=== PATIENT | male | born 1970 | race African-American/Black ===

== ENCOUNTER 2017-01-28 20:41 | Inpatient (IN) | payer SELFPAY ==
[~2017-01-28] VITALS: Ht 182.9 cm; Wt 110.0 kg
[2017-01-28 20:43] VITALS: BP 137/77; PULSE 126; RESP 15; TEMP 102.1; O2SAT 97
--- NOTE | 2017-01-28 22:11 | PD ---
Physical Exam Date Seen by Provider: Jan 28, 2017 Time Seen by Provider: 22:08 Narrative 46 yo male here for dizzyness. has been ongoing for a couple of days. Standing makes it worst.Fell yesterday secondary to this dizzy spells. He feels like he has had a fever. No chest pain or SOB. No loss of consciousness. No sick contacts. Feels lightheaded when he stands. Comes and goes. Worsen today. Vitals sign stable. Patient awaiting bed placement. Data Data Last Documented VS Vital Signs Date Time Temp Pulse Resp B/P Pulse Ox O2 Delivery O2 Flow Rate FiO2 01/28/17 20:43 102.1 126 15 137/77 97 Room Air [facility] Medical Record Reviewed: Yes Supervised Visit with HAILEY: Javier Blanco Jan 28, 2017 22:11
[2017-01-28 22:38] VITALS: BP 135/80; PULSE 116; RESP 20; TEMP 99; O2SAT 96
[2017-01-28] MEDS ORDERED: SODIUM CHLOR 0.9% 1000 ML INJ 1,000 ML IV ONE (23:05)
--- NOTE | 2017-01-28 23:09 | PD ---
HPI Chief Complaint: Dizziness Time Seen by Provider: 22:42 Travel History International Travel<30 days: No Contact w/Intl Traveler<30days: No Traveled to known affect area: No History of Present Illness HPI 46yo M with PMH of HTN presents to the ED with c/o cough for 2-3 days. [place] warm yesterday and has been feeling lightheaded. States lightheaded is worst when he stands up from sitting. Denies any headache, neck pain, chest pain, sob , n/v, abdominal pain, focal weakness or numbness, diarrhea, recent traveling or sick contact. PFSH Past Medical History Cardiovascular Problems: Yes (HTN) Past Surgical History Surgical History: No Previous Surgery Social History Alcohol Use: Yes (10 BEERS EVERY OTHER DAY) Tobacco Use: No Substance Use: No Allergies-Medications (Allergen,Severity, Reaction): Coded Allergies: No Known Allergies (Unverified , 01/28/17) Review of Systems Except as stated in HPI: all other systems reviewed are Neg Physical Exam Narrative GENERAL: 46yo M in mild distress. SKIN: Focused skin assessment warm/dry. HEAD: Atraumatic. Normocephalic. EYES: Pupils equal and round. No scleral icterus. No injection or drainage. ENT: Throat: Clear. NECK: No nuchal rigidity. CARDIOVASCULAR: Regular rate and rhythm. No murmur appreciated. RESPIRATORY: No accessory muscle use. Clear to auscultation. Breath sounds equal bilaterally. GASTROINTESTINAL: Abdomen soft, non-tender, nondistended. MUSCULOSKELETAL: No obvious deformities. No clubbing. No cyanosis. No edema. NEUROLOGICAL: Awake and alert. No obvious cranial nerve deficits. Motor grossly within normal limits. Normal speech. PSYCHIATRIC: Appropriate mood and affect; insight and judgment normal. Data Data Last Documented VS Vital Signs Date Time Temp Pulse Resp B/P Pulse Ox O2 Delivery O2 Flow Rate FiO2 01/29/17 01:31 98.3 115 22 169/79 98 Nasal Cannula 2 Orders Electrocardiogram (01/28/17 23:05) Basic Metabolic Panel (Bmp) (01/28/17 23:05) Complete Blood Count With Diff (01/28/17 23:05) Magnesium (Mg) (01/28/17 23:05) B-Type Natriuretic Peptide (01/28/17 23:05) Ckmb (Isoenzyme) Profile (01/28/17 23:05) Troponin I (01/28/17 23:05) Act Partial Throm Time (Ptt) (01/28/17 23:05) Prothrombin Time / Inr (Pt) (01/28/17 23:05) Urinalysis - C+S If Indicated (01/28/17 23:05) Chest, Single Ap (01/28/17 23:05) Ecg Monitoring (01/28/17 23:05) Sodium Chlor 0.9% 1000 Ml Inj (Ns 1000 M (01/28/17 23:05) Orthostatic Vital Signs (01/28/17 23:05) Blood Culture (01/28/17 23:05) Lactic Acid Sepsis Protocol (01/28/17 23:05) Acetaminophen (Tylenol) (01/28/17 23:15) CKMB (01/28/17 23:00) CKMB% (01/28/17 23:00) Influenzae A/B Antigen (01/29/17 00:17) Vancomycin Inj (Vancomycin Inj) (01/29/17 00:30) Piperacil-Tazo 3.375 Gm Premix (Zosyn 3. (01/29/17 00:30) Sodium Chlor 0.9% 1000 Ml Inj (Ns 1000 M (01/29/17 00:30) Sodium Chlor 0.9% 1000 Ml Inj (Ns 1000 M (01/29/17 00:30) Chest, Single Ap (01/29/17 ) Admit Order (Ed Use Only) (01/29/17 01:42) Vancomycin Consult Pharmacy (Vancomycin (01/29/17 01:45) Cefepime Inj (Maxipime Inj) (01/29/17 09:00) Admit To Inpatient (01/29/17 ) Vital Signs (Adult) Q4H (01/29/17 01:45) Activity Oob With Assistance (01/29/17 01:45) Top Carrier / Telemetry .CONTINUOUS (01/29/17 01:45) Intake + Output JOSEPH.QSHIFT (01/29/17 01:45) Diet Heart Healthy (01/29/17 Breakfast) Sodium Chlor 0.9% 1000 Ml Inj (Ns 1000 M (01/29/17 01:45) Sodium Chloride 0.9% Flush (Ns Flush) (01/29/17 01:45) Sodium Chloride 0.9% Flush (Ns Flush) (01/29/17 09:00) Ondansetron Inj (Zofran Inj) (01/29/17 01:45) Bisacodyl Supp (Dulcolax Supp) (01/29/17 01:45) Comprehensive Metabolic Panel (01/29/17 08:00) Complete Blood Count With Diff (01/29/17 08:00) Creatine Kinase (Cpk) (01/29/17 08:00) Creatine Kinase (Cpk) (01/29/17 14:00) Scd Bilateral/Knee High JOSEPH.BID (01/29/17 01:45) Geo Bilateral/Knee High JOSEPH.QSHIFT (01/29/17 01:45) Acetaminophen (Tylenol) (01/29/17 01:45) Acetamin-Hydrocod 325-5 Mg ([place] 5-325 (01/29/17 01:45) Morphine Inj (Morphine Inj) (01/29/17 01:45) Inpatient Certification (01/29/17 ) Albuterol-Ipratropium Neb (Duoneb Neb) (01/29/17 01:45) Echo 2d Comp W/Dopp(Routine) (01/29/17 ) Lactic Acid (01/29/17 08:00) Labs Laboratory Tests Test 01/28/17 01/28/17 01/29/17 23:00 23:05 01:45 Prothrombin Time 15.9 SEC Prothromb Time International 1.4 RATIO Ratio Activated Partial 29.1 SEC Thromboplast Time White Blood Count 10.5 TH/MM3 Red Blood Count 3.68 MIL/MM3 Hemoglobin 11.8 GM/DL Hematocrit 35.8 % Mean Corpuscular Volume 97.3 FL Mean Corpuscular Hemoglobin 32.1 PG Mean Corpuscular Hemoglobin 33.0 % Concent Red Cell Distribution Width 15.4 % Platelet Count 81 TH/MM3 Mean Platelet Volume 10.1 FL Neutrophils (%) (Auto) 86.2 % Lymphocytes (%) (Auto) 4.4 % Monocytes (%) (Auto) 9.1 % Eosinophils (%) (Auto) 0.1 % Basophils (%) (Auto) 0.2 % Neutrophils # (Auto) 9.1 TH/MM3 Lymphocytes # (Auto) 0.5 TH/MM3 Monocytes # (Auto) 1.0 TH/MM3 Eosinophils # (Auto) 0.0 TH/MM3 Basophils # (Auto) 0.0 TH/MM3 CBC Comment AUTO DIFF Differential Total Cells 100 Counted Neutrophils % (Manual) 60 % Band Neutrophils % 18 % Lymphocytes % 13 % Monocytes % 6 % Neutrophils # (Manual) 8.5 TH/MM3 Metamyelocytes 3 % Differential Comment FINAL DIFF MANUAL Platelet Estimate LOW Platelet Morphology Comment NORMAL Tear Drop Cells 1+ Keratocytes OCC Urine Color DARK-YELLOW Urine Turbidity HAZY Urine pH 5.5 Urine Specific [place] 1.018 Urine Protein 30 mg/dL Urine Glucose (UA) NEG mg/dL Urine Ketones TRACE mg/dL Urine Occult Blood SMALL Urine Nitrite NEG Urine Bilirubin SMALL Urine Urobilinogen LESS THAN 2.0 MG/DL Urine Leukocyte Esterase NEG Urine RBC 1 /hpf Urine WBC 3 /hpf Urine Squamous Epithelial <1 /hpf Cells Urine Bacteria RARE /hpf Urine Hyaline Casts 5 /lpf Urine Mucus FEW /lpf Microscopic Urinalysis Comment CULT NOT INDICATED Sodium Level 135 MEQ/L Potassium Level 3.8 MEQ/L Chloride Level 100 MEQ/L Carbon Dioxide Level 23.0 MEQ/L Anion Gap 12 MEQ/L Blood Urea Nitrogen 15 MG/DL Creatinine 1.53 MG/DL Estimat Glomerular Filtration 60 ML/MIN Rate Random Glucose 107 MG/DL Lactic Acid Level 5.1 mmol/L 4.5 mmol/L Calcium Level 8.6 MG/DL Magnesium Level 1.3 MG/DL Total Creatine Kinase 999 U/L Creatine Kinase MB 4.7 NG/ML Creatine Kinase MB % 0.5 % Troponin I 0.08 NG/ML B-Type Natriuretic Peptide 240 PG/ML [facility] Medical Decision Making Medical Screen Exam Complete: Yes Emergency Medical Condition: Yes Interpretation(s) EKG: Sinus tachycardia at 114bpm. Borderline LAD. Differential Diagnosis Sepsis secondary to pneumonia vs. dehydration vs. influenza Narrative Course 46yo M with SIRS criteria. Pt initially tachycardic and febrile initially. Pt did have some cough. States only history is HTN. Pt given acetaminophen 650mg and sepsis work up initiated. Pt given vancomycin and zosyn. CXR showd no evidence of cardiopulmonary disease. Labs reviewed, no leukocytosis. However, there is bandemia at 18%. Lactic acid is elevated at 5.1. Troponin is mildly elevated at 0.08, likely secondary to sepsis as pt has no chest pain or sob. CPK is elevated at 999. Creatinine 1.53, no prior to compare. BNP mildly elevated at 240. UA showed dark urine. Negative leukocyte or nitrite. After 2 liters of NS IVF, pt started complaining of SOB. Pt reevaluated at bedside and does have some bibasilar crackles. Third liter of NS was not given. Repeat CXR showed mild failure developing in proper clinical setting. Pt has been observed in the ED and has been saturating well. Pt reevaluated at bedside and is feeling better and no longer sob. Discussed case with Dr. Torres and accepted to her service. Critical Care Narrative Aggregate critical care time was 40 minutes. Time to perform other separately billable procedures was not included in the critical care time. My time did not include minutes spent treating any other patients simultaneously or on activities that did not directly contribute to the patient's treatment. The services I provided to this patient were to treat and/or prevent clinically significant deterioration that could result in: cardiovascular collapse or . I provided critical care services requiring my management, as noted below: Chart data review, documentation time, medication orders and management, vital sign assessments/reviewing monitor data, ordering and reviewing lab tests, ordering and interpreting/reviewing x-rays and diagnostic studies, care of the patient and discussion of the patient with the admitting physicians. Diagnosis Primary Impression: Sepsis Qualified Code: A41.9 - Sepsis, due to unspecified organism Admitting Information Admitting Physician Requests: Charmaine Shea DO Jan 28, 2017 23:09
[2017-01-28] MEDS ORDERED: ACETAMINOPHEN 325 MG TAB PO ONE (23:15)
[2017-01-28 23:35] LABS: AUTOMATED NEUTROPHIL # 9.1 TH/MM3 (1.8-7.7); BASOPHIL % 0.2 % (0.0-2.0); EOSINOPHIL % 0.1 % (0.0-4.0); HEMATOCRIT 35.8 % (39.0-51.0); LYMPH % 4.4 % (9.0-44.0); LYMPHOCYTE # 0.5 TH/MM3 (1.0-4.8); MEAN CELL VOLUME 97.3 FL (80.0-100.0); MEAN CORPUSCULAR HEMOGLOBIN 32.1 PG (27.0-34.0); MONO % 9.1 % (0.0-8.0); NEUT % 86.2 % (16.0-70.0); PLATELET COUNT 81 TH/MM3 (150-450); RED BLOOD COUNT 3.68 MIL/MM3 (4.50-5.90); RED CELL DISTRIBUTION WIDTH 15.4 % (11.6-17.2); WHITE BLOOD COUNT 10.5 TH/MM3 (4.0-11.0)
[2017-01-28 23:36] VITALS: BP 127/63; PULSE 115; RESP 24; O2SAT 97
[2017-01-28 23:39] LABS: HEMO FLAGS AUTO DIFF
[2017-01-28 23:43] LABS: APTT (PATIENT) 29.1 SEC (24.3-30.1); INTERNATIONAL NORMALIZED RATIO 1.4 RATIO; PROTHROMBIN TIME - PATIENT 15.9 SEC (9.8-11.6)
--- NOTE | 2017-01-28 23:43 | RADRPT ---
EXAM DATE/TIME: 01/28/2017 23:23 [facility] COMPARISON: No previous studies available for comparison. INDICATIONS : Cough and congestion. MEDICAL HISTORY : None. SURGICAL HISTORY : None. ENCOUNTER: Initial ACUITY: 2 days PAIN SCORE: 6/10 LOCATION: Bilateral chest FINDINGS: A single view of the chest demonstrates the lungs to be symmetrically aerated without evidence of mas s, infiltrate or effusion. The cardiomediastinal contours are unremarkable. Osseous structures are intact. CONCLUSION: No evidence of acute cardiopulmonary disease. Stalin Coffey MD on January 28, 2017 at 23:41 Board Certified Radiologist. This report was verified electronically.
[2017-01-28 23:59] LABS: MAGNESIUM 1.3 MG/DL (1.5-2.5); POTASSIUM 3.8 MEQ/L (3.5-5.1)
[2017-01-29] VITALS (7 sets, daily range): BP systolic 128–176; BP diastolic 78–94; PULSE 103–115; RESP 20–22; TEMP 97.7–99.4; O2SAT 96–99
[2017-01-29 00:18] LABS: CKMB 4.7 NG/ML (0.5-3.6)
[2017-01-29] MEDS ORDERED: SODIUM CHLOR 0.9% 1000 ML INJ 1,000 ML IV ONE ×2 (00:30)
[2017-01-29] MEDS ORDERED: VANCOMYCIN INJ 1,650 MG in SODIUM CHLORID 0.9% 500 ML INJ 500 ML IV ONE (00:30)
[2017-01-29] MEDS ORDERED: PIPERACIL-TAZO 3.375 GM PREMIX 50 ML IV ONE (00:30)
[2017-01-29 00:55] LABS: BANDS 18 % (0-6); METAMYELOCYTES 3 % (0-1); NEUTROPHIL # MANUAL DIFF 8.5 TH/MM3 (1.8-7.7); POLYS (SEG NEUTROPHILS) 60 % (16-70); WBC DIFF SAMPLE 100
[2017-01-29 00:56] LABS: TEARDROP RBCS 1+ (NORMAL)
[2017-01-29 00:57] LABS: KERATOCYTES OCC (NORMAL); PLATELET ESTIMATE SMEAR LOW (NORMAL); PLATELET MORPHOLOGY NORMAL (NORMAL); SCAN/DIFF FINAL DIFF MANUAL
[2017-01-29 01:29] LABS: LACTIC ACID GHOST NOT REPORTABLE
[2017-01-29 01:41] LABS: BACTERIA, URINE RARE /hpf; BLOOD, URINE SMALL (NEG); GLUCOSE,URINE NEG (NEG); HYALINE CAST, URINE 5 /lpf (RARE); KETONE, URINE TRACE mg/dL (NEG); MUCUS URINE FEW /lpf (OCC); NITRITE,URINE NEG (NEG); PH, URINE 5.5 (5.0-8.5); SQUAMOUS EPITHELIAL CELL URINE <1 /hpf (0-5); URINE COLOR DARK-YELLOW (YELLW/STRAW)
[2017-01-29 01:43] LABS: COMMENT (UR) CULT NOT INDICATED; CULTURE IF INDICATED CULT NOT INDICATED
[2017-01-29] MEDS: SODIUM CHLOR 0.9% 1000 ML INJ 1,000 ML IV SCH ×2 (01:45→21:00)
[2017-01-29] MEDS ORDERED: ACETAMINOPHEN/HYDROcodone 325 MG/5 MG TAB PO PRN (01:45)
[2017-01-29] MEDS ORDERED: MORPHINE SULFATE 4 MG/ML INJ IV PRN (01:45)
[2017-01-29] MEDS ORDERED: Vancomycin Consult Pharmacy 1 EA OTHER SCH (01:45)
[2017-01-29] MEDS ORDERED: RESP: ALBUTEROL 2.5 MG/IPRATROPIUM 0.5 MG NEB (PRN) NEB (01:45)
[2017-01-29] MEDS ORDERED: ACETAMINOPHEN 325 MG TAB PO PRN (01:45)
[2017-01-29] MEDS ORDERED: BISACODYL 10 MG SUPP RECTAL PRN (01:45)
[2017-01-29] MEDS ORDERED: ONDANSETRON HCL 4 MG/2 ML VIAL IVP PRN (01:45)
[2017-01-29] MEDS ORDERED: SODIUM CHLORIDE 0.9% FLUSH 10 ML FLUSH IV FLUSH PRN (01:45)
[2017-01-29] MEDS ORDERED: RESP: ALBUTEROL 2.5 MG/IPRATROPIUM 0.5 MG NEB (SCH) ONE (02:09)
[2017-01-29] MEDS ORDERED: FUROSEMIDE 20 MG/2 ML VIAL IV PUSH ONE (02:15)
--- NOTE | 2017-01-29 02:35 | RADRPT ---
EXAM DATE/TIME: 01/29/2017 02:02 [facility] COMPARISON: CHEST SINGLE AP, January 28, 2017, 23:23. INDICATIONS : Short of breath. MEDICAL HISTORY : None. SURGICAL HISTORY : None. ENCOUNTER: Subsequent ACUITY: 1 day PAIN SCORE: 7/10 LOCATION: Bilateral chest FINDINGS: Mild haziness seen of both bases and perihilar regions, suggest the possibility of mild developing pu lmonary edema. Heart size upper limits of normal. No large effusion seen. No pneumothorax. CONCLUSION: Suspected mild failure developing in the proper clinical setting. No confluent infiltrate seen. Stalin Coffey MD on January 29, 2017 at 2:32 Board Certified Radiologist. This report was verified electronically.
--- NOTE | 2017-01-29 02:45 | HHI.HP ---
[facility] No Primary Care Physician Admission Diagnosis Sepsis, rhabdomyolysis Diagnoses: (1) Sepsis Diagnosis: Principal (2) Bandemia Diagnosis: Principal (3) Elevated troponin Diagnosis: Principal (4) Flash pulmonary edema Diagnosis: Principal (5) Rhabdomyolysis Diagnosis: Principal (6) Renal insufficiency Diagnosis: Principal (7) Thrombocytopenia Diagnosis: Principal Travel History International Travel<30 Days: No Contact w/Intl Traveler <30 Da: No Traveled to Known Affected Are: No History of Present Illness This is a 46-year-old male with a PMH of HTN and presented to the ER with complaints of generalized weakness, cough and fever x2 days. Denies sick contacts. Reports episodes of dizziness/lightheadedness today, no LOC. On arrival, BP 137/77, HR 126, O2 sat 97% on RA, Temp 102.1. WBC 10.5. Platelets 81. Bandemia 18. Creatinine 1.53, no previous labs for comparison. GFR 60. Lactic Acid 5.1. CPK 999. Trop 0.08. BNP 240. U/a hazy but neg for UTI. CXR negative for UTI. S/p 2L IVF and Vanc/Zosyn in ER. After IVF, pt w/ acute respiratory distress, +crackles. Denies h/o CHF or CAD. Review of Systems Except as stated in HPI: all other systems reviewed are Neg ROS: 14 point review of systems otherwise negative. Past Family Social History Past Medical History PMH: HTN Past Surgical History PAST SURGICAL HISTORY: None Allergies: Coded Allergies: No Known Allergies (Unverified , 01/28/17) Family History PAST FAMILY HISTORY: Reviewed. No h/o DM or CAD Social History PAST SOCIAL HISTORY: 10 beers every other day. Negative for tobacco or drugs. Physical Exam Vital Signs Vital Signs Date Time Temp Pulse Resp B/P Pulse Ox O2 Delivery O2 Flow Rate FiO2 01/29/17 01:31 98.3 115 22 169/79 98 Nasal Cannula 2 01/28/17 23:36 115 24 127/63 97 Room Air 01/28/17 23:00 Room Air 01/28/17 22:38 99.0 116 20 135/80 96 Room Air 01/28/17 20:43 102.1 126 15 137/77 97 Room Air Physical Exam PE: GENERAL: Middle-aged black male in no acute distress. HEENT: PERRLA, EOMI. No scleral icterus or conjunctival pallor. No lid lag or facial droop. CARDIOVASCULAR: Regular rate and rhythm. No obvious murmurs to auscultation. No chest tenderness to palpation. RESPIRATORY: No obvious rhonchi or wheezing, +crackles at bases, otherwise clear to auscultation. Breath sounds equal bilaterally. GASTROINTESTINAL: Abdomen soft, non-tender, nondistended. BS normal. MUSCULOSKELETAL: Extremities without clubbing, cyanosis, or edema. No obvious deformities. NEUROLOGICAL: Awake, alert and oriented x4. No focal neurologic deficits. Moving both upper and lower extremities spontaneously. Laboratory Laboratory Tests Test 01/28/17 01/28/17 23:00 23:05 Prothrombin Time 15.9 Prothromb Time International 1.4 Ratio Activated Partial 29.1 Thromboplast Time White Blood Count 10.5 Red Blood Count 3.68 Hemoglobin 11.8 Hematocrit 35.8 Mean Corpuscular Volume 97.3 Mean Corpuscular Hemoglobin 32.1 Mean Corpuscular Hemoglobin 33.0 Concent Red Cell Distribution Width 15.4 Platelet Count 81 Mean Platelet Volume 10.1 Neutrophils (%) (Auto) 86.2 Lymphocytes (%) (Auto) 4.4 Monocytes (%) (Auto) 9.1 Eosinophils (%) (Auto) 0.1 Basophils (%) (Auto) 0.2 Neutrophils # (Auto) 9.1 Lymphocytes # (Auto) 0.5 Monocytes # (Auto) 1.0 Eosinophils # (Auto) 0.0 Basophils # (Auto) 0.0 CBC Comment AUTO DIFF Differential Total Cells 100 Counted Neutrophils % (Manual) 60 Band Neutrophils % 18 Lymphocytes % 13 Monocytes % 6 Neutrophils # (Manual) 8.5 Metamyelocytes 3 Differential Comment FINAL DIFF MANUAL Platelet Estimate LOW Platelet Morphology Comment NORMAL Tear Drop Cells 1+ Keratocytes OCC Urine Color DARK-YELLOW Urine Turbidity HAZY Urine pH 5.5 Urine Specific [place] 1.018 Urine Protein 30 Urine Glucose (UA) NEG Urine Ketones TRACE Urine Occult Blood SMALL Urine Nitrite NEG Urine Bilirubin SMALL Urine Urobilinogen LESS THAN 2.0 Urine Leukocyte Esterase NEG Urine RBC 1 Urine WBC 3 Urine Squamous Epithelial <1 Cells Urine Bacteria RARE Urine Hyaline Casts 5 Urine Mucus FEW Microscopic Urinalysis Comment CULT NOT INDICATED Sodium Level 135 Potassium Level 3.8 Chloride Level 100 Carbon Dioxide Level 23.0 Anion Gap 12 Blood Urea Nitrogen 15 Creatinine 1.53 Estimat Glomerular Filtration 60 Rate Random Glucose 107 Lactic Acid Level 5.1 Calcium Level 8.6 Magnesium Level 1.3 Total Creatine Kinase 999 Creatine Kinase MB 4.7 Creatine Kinase MB % 0.5 Troponin I 0.08 B-Type Natriuretic Peptide 240 Date/Time Procedure Status Source Growth 01/29/17 00:30 Influenza Types A,B Antigen ([facility]ACK) - Final Complete Nasal Aspirate NEGATIVE FOR FLU A AND B ANTIGEN.... 01/28/17 23:00 Aerobic Blood Culture Received Blood Peripheral Pending 01/28/17 23:00 Anaerobic Blood Culture Received Blood Peripheral Pending Result Diagram: 01/28/17 2300 01/28/170 Assessment and Plan Problem List: (1) Sepsis ICD Code: A41.9 Status: Acute (2) Bandemia ICD Code: D72.825 Status: Acute (3) Elevated troponin ICD Code: R74.8 Status: Acute (4) Rhabdomyolysis ICD Code: M62.82 Status: Acute (5) Renal insufficiency ICD Code: N28.9 Status: Acute (6) Thrombocytopenia ICD Code: D69.6 Status: Acute (7) Flash pulmonary edema ICD Code: J81.0 Status: Acute Assessment and Plan A/P: 1. Sepsis: Temp 102.1, HR 126, WBC 10.5 however Bandemia 18, Lactate 5.1. Source-unclear. CXR w/ no acute findings, images reviewed by me, U/a negative for UTI. S/p Vanc/Zosyn in ER in addition to 2L IVF, caution w/ IVF in light of flash pulmonary edema. Repeat Lactate. 2. Flash Pulmonary Edema: s/p 2L IVF for Sepsis w/ acute respiratory distress , +crackles on exam, give Lasix 10mg x1 now, repeat CXR, DuoNeb prn. +diuresis following Lasix. I/O. BNP 240. No h/o CHF, will check Echo for further evaluation. 3. Elevated Trop: Trop 0.08, likely secondary to fluid overload/sepsis. Check serial cardiac enzymes, check Echo, Morphine prn. Hold ASA in light of thrombocytopenia. 4. Rhabdomyolysis: CPK 999. IVF-caution w/ fluid overload, check serial CPK. 5. Renal Insufficiency: Creatinine 1.53, no previous labs for comparison, baseline unknown. U/a negative. IVF-caution w/ overload. Repeat labs in am. 6. Thrombocytopenia: Platelets 81, no previous labs for comparison, no active bleeding. Will monitor, repeat labs in am. 7. DVT Prophylaxis: SCD/Teds. 8. Social work for d/c planning as needed. 9. Case discussed w/ ER physician at length. Physician Certification 2 Midnight Certification Type: Admission for Inpatient Services Order for Inpatient Services The services are ordered in accordance with Medicare regulations or non- Medicare payer requirements, as applicable. In the case of services not specified as inpatient-only, they are appropriately provided as inpatient services in accordance with the 2-midnight benchmark. Estimated LOS (days): 2 days is the estimated time the patient will need to remain in the hospital, assuming treatment plan goals are met and no additional complications. Post-Hospital Plan: Not yet determined Problem Qualifiers (1) Sepsis: Qualified Code: A41.9 - Sepsis, due to unspecified organism Maribel Torres MD Jan 29, 2017 02:45
[2017-01-29] MEDS ORDERED: LORazepam 1 MG TAB PO PRN (08:30)
[2017-01-29] MEDS ORDERED: LORazepam 2 MG/ML VIAL IV PUSH PRN ×4 (08:30)
[2017-01-29] MEDS ORDERED: FLUMAZENIL 0.5 MG/5 ML VIAL IV PUSH PRN (08:30)
[2017-01-29] MEDS ORDERED: LORazepam 2 MG TAB PO PRN (08:30)
[2017-01-29 08:48] LABS: AUTOMATED NEUTROPHIL # 14.1 TH/MM3 (1.8-7.7); BASOPHIL % 0.3 % (0.0-2.0); HEMATOCRIT 33.2 % (39.0-51.0); LYMPH % 3.5 % (9.0-44.0); LYMPHOCYTE # 0.6 TH/MM3 (1.0-4.8); MEAN CELL VOLUME 97.4 FL (80.0-100.0); MEAN CORPUSCULAR HEMOGLOBIN 32.7 PG (27.0-34.0); MEAN CORPUSCULAR HGB CONC 33.6 % (32.0-36.0); MONO % 10.1 % (0.0-8.0); NEUT % 86.1 % (16.0-70.0); PLATELET COUNT 75 TH/MM3 (150-450); RED BLOOD COUNT 3.41 MIL/MM3 (4.50-5.90); RED CELL DISTRIBUTION WIDTH 15.9 % (11.6-17.2); WHITE BLOOD COUNT 16.3 TH/MM3 (4.0-11.0)
[2017-01-29 08:51] LABS: HEMO FLAGS AUTO DIFF
--- NOTE | 2017-01-29 08:52 | HHI.PR ---
Subjective Remarks f/u for possible infection, tachycardia patient stated yesterday he was so fatigue so slept all day and didnt drink any fluids. He stated prior from that he was drinking a lot. Denied any SOB prior to admission and stated we caused his SOB with fluids. Only symptoms patient had was watery diarrhea and feeling fatigue. Objective Vitals Vital Signs Date Time Temp Pulse Resp B/P Pulse Ox O2 Delivery O2 Flow Rate FiO2 01/29/17 08:19 98.3 111 20 128/88 98 Room Air 01/29/17 05:57 106 20 148/81 98 Room Air 01/29/17 04:02 108 20 155/78 96 Room Air 01/29/17 01:31 98.3 115 22 169/79 98 Nasal Cannula 2 01/28/17 23:36 115 24 127/63 97 Room Air 01/28/17 23:00 Room Air 01/28/17 22:38 99.0 116 20 135/80 96 Room Air 01/28/17 20:43 102.1 126 15 137/77 97 Room Air Result Diagram: 01/28/17 2300 01/28/17 2300 Objective Remarks GENERAL: in NAD CARDIOVASCULAR: Regular rate and rhythm without murmurs, gallops, or rubs. RESPIRATORY: Breath sounds equal bilaterally. No accessory muscle use. GASTROINTESTINAL: Abdomen soft, non-tender, nondistended. MUSCULOSKELETAL: No cyanosis, or edema. BACK: Nontender without obvious deformity. No CVA tenderness. Medications and IVs Current Medications Sodium Chloride (NS 1000 ml Inj) 1,000 ml @ 1,000 mls/hr Q1H ONCE IV Last administered on 01/28/17 23:32; Start 01/28/17 at 23:05; Stop 01/29/17 at 00:04 ; Status DC Acetaminophen 650 mg 650 mg ONCE ONCE PO Last administered on 01/28/17 23:32 ; Start 01/28/17 at 23:15; Stop 01/28/17 at 23:16; Status DC Vancomycin HCl 1650 mg/Sodium Chloride 516.5 ml @ 250 mls/hr ONCE ONCE IV Last administered on 01/29/17 01:48; Start 01/29/17 at 00:30; Stop 01/29/17 at 02:34; Status DC Piperacillin Sod/ Tazobactam Sod 50 ml @ 100 mls/hr ONCE ONCE IV Last administered on 01/29/17 00:45; Start 01/29/17 at 00:30; Stop 01/29/17 at 00:59 ; Status DC Sodium Chloride 1,000 ml @ 999 mls/hr BOLUS ONCE IV Last administered on 01/29 00:44; Start 01/29/17 at 00:30; Stop 01/29/17 at 01:30; Status DC Sodium Chloride 1,000 ml @ 999 mls/hr BOLUS ONCE IV Last administered on 01/29 00:45; Start 01/29/17 at 00:30; Stop 01/29/17 at 01:30; Status DC Pharmacy Profile Note 0 ml @ 0 mls/hr UNSCH OTHER ; Start 01/29/17 at 01:45 Cefepime HCl 1000 mg/Sodium Chloride 100 ml @ 200 mls/hr Q12H IV ; Start at 09:00 Sodium Chloride (NS 1000 ml Inj) 1,000 ml @ 50 mls/hr Q20H IV ; Start 01/29/17 at 01:45 Sodium Chloride (NS Flush) 2 ml UNSCH PRN IV FLUSH FLUSH AFTER USING IV ACCESS ; Start 01/29/17 at 01:45 Sodium Chloride (NS Flush) 2 ml BID IV FLUSH ; Start 01/29/17 at 09:00 Ondansetron HCl (Zofran Inj) 4 mg Q6H PRN IVP NAUSEA OR VOMITING; Start at 01:45 Bisacodyl (Dulcolax Supp) 10 mg DAILY PRN RECTAL CONSTIPATION; Start 01/29/17 at 01:45 Acetaminophen (Tylenol) 650 mg Q6H PRN PO FEVER/PAIN SCALE 1 TO 2; Start at 01:45 Acetaminophen/ Hydrocodone Bitart ([place] 5-325 Mg) 1 tab Q4H PRN PO PAIN SCALE 3 TO 5; Start 01/29/17 at 01:45 Morphine Sulfate (Morphine Inj) 2 mg Q3H PRN IV Pain 6-10; Start 01/29/17 at 01 :45 Albuterol/ Ipratropium (Duoneb Neb) 1 ampule Q4HR NEB PRN NEB SOB/WHEEZING; Start 01/29/17 at 01:45 Furosemide (Lasix Inj) 10 mg ONCE ONCE IV PUSH Last administered on 01/29/17 02:27; Start 01/29/17 at 02:15; Stop 01/29/17 at 02:34; Status DC Albuterol/ Ipratropium (Duoneb Neb) 1 ampule STK-MED ONCE .ROUTE Last administered on 01/29/17 02:26; Start 01/29/17 at 02:09; Stop 01/29/17 at 02:10 ; Status DC Flumazenil (Romazicon Inj) 0.2 mg Q1M PRN IV PUSH SEE LABEL COMMENTS; Start at 08:30 Lorazepam (Ativan) 1 mg Q4H PRN PO CIWA 8 - 10; Start 01/29/17 at 08:30 Lorazepam (Ativan Inj) 1 mg Q4H PRN IV PUSH CIWA 8 - 10; Start 01/29/17 at 08: 30 Lorazepam (Ativan) 2 mg Q2H PRN PO CIWA 11-14; Start 01/29/17 at 08:30 Lorazepam (Ativan Inj) 2 mg Q2H PRN IV PUSH CIWA 11-14; Start 01/29/17 at 08:30 Lorazepam (Ativan Inj) 2 mg Q1H PRN IV PUSH CIWA 15-20; Start 01/29/17 at 08:30 Lorazepam (Ativan Inj) 2 mg Q15M PRN IV PUSH CIWA > 20; Start 01/29/17 at 08:30 A/P Problem List: (1) Sepsis ICD Code: A41.9 Status: Acute (2) Bandemia ICD Code: D72.825 Status: Acute (3) Elevated troponin ICD Code: R74.8 Status: Acute (4) Rhabdomyolysis ICD Code: M62.82 Status: Acute (5) Renal insufficiency ICD Code: N28.9 Status: Acute (6) Thrombocytopenia ICD Code: D69.6 Status: Acute (7) Flash pulmonary edema ICD Code: J81.0 Status: Acute Assessment and Plan SIRS -Temp 102.1, HR 126, WBC 10.5 however Bandemia 18, Lactate 5.1. CXR w/ no acute findings and U/a negative for UTI. -+ diarrhea and no abdominal pain. seems more like viral etiology. will get stool samples. -clinically patient looks good d/c S/p Vanc and cefepime since no infectious source and see how patient does off antibiotics. -pending blood cultures. Flash Pulmonary Edema - s/p 2L IVF for Sepsis w/ acute respiratory distress, +crackles on exam, give Lasix 10mg x1 now, repeat CXR, DuoNeb prn. +diuresis following Lasix. I/O. BNP 240. -No h/o CHF. pending ECHO. Tachycardia -maybe due to alcohol withdrawal or due to SIRS/dehydration. -continue to monitor on telemetry. Elevated Trop - Trop 0.08, likely secondary to fluid overload/SIRS. - Check serial cardiac enzymes, check Echo, Morphine prn. Hold ASA in light of thrombocytopenia. Rhabdomyolysis - CPK 999. - IVF-caution w/ fluid overload, check serial CPK. -monitor closely. Renal Insufficiency Creatinine 1.53, no previous labs for comparison, baseline unknown. - U/a negative. IVF-caution w/ overload. -continue to monitor creatinine. -avoid nephrotoxins. Thrombocytopenia -most likely due to alcoholism. - Platelets 81, no previous labs for comparison, no active bleeding. -continue to monitor. Alcohol abuse -will start CIWA protocol. DVT Prophylaxis: SCD/Teds. Discharge Planning Need to monitor closely to ensure improvement. Problem Qualifiers (1) Sepsis: Qualified Code: A41.9 - Sepsis, due to unspecified organism Miley Ochoa MD Jan 29, 2017 08:52
[2017-01-29] MEDS: SODIUM CHLORIDE 0.9% FLUSH 10 ML FLUSH IV FLUSH SCH ×2 (08:54→21:00)
[2017-01-29] MEDS ORDERED: CEFEPIME INJ 1,000 MG in SODIUM CHLORIDE 0.9% INJ 100 ML IV SCH (09:00)
[2017-01-29 11:52] LABS: BANDS 40 % (0-6); BASOPHILS 1 % (0-2); NEUTROPHIL # MANUAL DIFF 15.2 TH/MM3 (1.8-7.7); PLATELET ESTIMATE SMEAR LOW (NORMAL); PLATELET MORPHOLOGY NORMAL (NORMAL); POLYS (SEG NEUTROPHILS) 53 % (16-70); SCAN/DIFF FINAL DIFF MANUAL; WBC DIFF SAMPLE 100
[2017-01-29 14:28] LABS: ALKALINE PHOSPHATASE 127 U/L (45-117); ALT (GPT) 89 U/L (12-78); ANION GAP 14 MEQ/L (5-15); AST (GOT) 258 U/L (15-37); BLOOD UREA NITROGEN 16 MG/DL (7-18); CHLORIDE 104 MEQ/L (98-107); CREATINE KINASE 1030 U/L (39-308); GLOMERULAR FILTRATION RATE 72 ML/MIN (>89); POTASSIUM 3.7 MEQ/L (3.5-5.1); SODIUM (NA) 136 MEQ/L (136-145)
[2017-01-29 14:45] LABS: CKMB 11.4 NG/ML (0.5-3.6)
[2017-01-29 15:24] LABS: C. DIFF EPI 027 PRESUMPTIVE NEGATIVE (NEGATIVE); C. DIFF TOXIN PCR NEGATIVE (NEGATIVE)
[2017-01-29 17:42] LABS: CKMB 10.1 NG/ML (0.5-3.6)
--- NOTE | 2017-01-29 19:10 | EKG ---
Date Performed: 01/28/2017 Time Performed: 23:23:12 PTAGE: 46 years EKG: SINUS TACHYCARDIA ABNORMAL RHYTHM ECG NO PREVIOUS TRACING DOCTOR: Anand Mobley Interpretating Date/Time 01/29/2017 19:08:17
[2017-01-30] VITALS (9 sets, daily range): BP systolic 126–176; BP diastolic 72–104; PULSE 82–108; RESP 18–20; TEMP 96.3–98.7; O2SAT 96–99
[2017-01-30 05:40] LABS: HEMATOCRIT 32.4 % (39.0-51.0); MEAN CELL VOLUME 96.7 FL (80.0-100.0); MEAN CORPUSCULAR HEMOGLOBIN 31.6 PG (27.0-34.0); MEAN CORPUSCULAR HGB CONC 32.7 % (32.0-36.0); PLATELET COUNT 72 TH/MM3 (150-450); RED BLOOD COUNT 3.36 MIL/MM3 (4.50-5.90); RED CELL DISTRIBUTION WIDTH 15.7 % (11.6-17.2); WHITE BLOOD COUNT 17.9 TH/MM3 (4.0-11.0)
[2017-01-30 05:46] LABS: REVIEW FLAG FINAL
[2017-01-30 05:59] LABS: BICARBONATE 27.5 MEQ/L (21.0-32.0); POTASSIUM 3.4 MEQ/L (3.5-5.1)
[2017-01-30] MEDS ORDERED: cloNIDine HCL 0.1 MG TAB PO PRN (06:00)
[2017-01-30] MEDS: SODIUM CHLOR 0.9% 1000 ML INJ 1,000 ML IV SCH (08:19)
[2017-01-30] MEDS: SODIUM CHLORIDE 0.9% FLUSH 10 ML FLUSH IV FLUSH SCH ×2 (08:19→21:59)
--- NOTE | 2017-01-30 09:44 | HHI.PR ---
Subjective Remarks Patient denies nausea, vomiting , abdominal pain denies fevers/chills states had diarrhea all day yesterday, he noticed he had some mucus but no blood denies cough denies cp denies skin lessions wbc trending up bp noted to be elevated. Objective Vitals Vital Signs Date Time Temp Pulse Resp B/P Pulse Ox O2 Delivery O2 Flow Rate FiO2 01/30/17 08:00 98.6 98 18 147/91 96 01/30/17 04:00 98.7 98 20 176/102 99 01/30/17 02:19 163/93 01/30/17 00:00 98.7 106 20 167/104 99 01/29/17 20:00 103 01/29/17 20:00 99.4 108 20 176/91 99 01/29/17 12:00 97.7 107 22 157/94 98 01/29/17 11:54 112 20 144/80 96 I/O 01/29/17 01/29/17 01/29/17 01/30/17 01/30/17 01/30/17 07:00 15:00 23:00 07:00 15:00 23:00 Intake Total 120 ml 480 ml 240 ml Output Total 200 ml Balance -80 ml 480 ml 240 ml Intake Oral 120 ml 480 ml 240 ml IV Total 0 ml Output Urine Total 200 ml # Voids 2 3 # Bowel Movements 1 2 Result Diagram: 01/30/17 0438 01/30/17 0438 Imaging Last Impressions Chest X-Ray 01/29/17 0000 Signed Impressions: Service Date/Time: Sunday, January 29, 2017 02:02 - CONCLUSION: Suspected mild failure developing in the proper clinical setting. No confluent infiltrate seen. Stalin Coffey MD Objective Remarks GENERAL: in NAD CARDIOVASCULAR: Regular rate and rhythm without murmurs, gallops, or rubs. RESPIRATORY: Breath sounds equal bilaterally. No accessory muscle use. GASTROINTESTINAL: Abdomen soft, non-tender, nondistended. MUSCULOSKELETAL: No cyanosis, or edema. BACK: Nontender without obvious deformity. No CVA tenderness. Procedures none Medications and IVs Current Medications Medications (Trade) Dose Ordered Sig/Elizabeth Route Start Time Stop Time Status Last Admin (NS 1000 ml Inj) 1,000 ml @ 50 mls/hr Q20H IV 01/29/17 01:45 (NS Flush) 2 ml UNSCH PRN IV FLUSH 01/29/17 01:45 (NS Flush) 2 ml BID IV FLUSH 01/29/17 09:00 01/30/17 08:19 (Zofran Inj) 4 mg Q6H PRN IVP 01/29/17 01:45 (Dulcolax Supp) 10 mg DAILY PRN RECTAL 01/29/17 01:45 (Tylenol) 650 mg Q6H PRN PO 01/29/17 01:45 ([place] 5-325 Mg) 1 tab Q4H PRN PO 01/29/17 01:45 (Morphine Inj) 2 mg Q3H PRN IV 01/29/17 01:45 (Romazicon Inj) 0.2 mg Q1M PRN IV PUSH 01/29/17 08:30 (Ativan) 1 mg Q4H PRN PO 01/29/17 08:30 01/29/17 21:00 (Ativan Inj) 1 mg Q4H PRN IV PUSH 01/29/17 08:30 (Ativan) 2 mg Q2H PRN PO 01/29/17 08:30 (Ativan Inj) 2 mg Q2H PRN IV PUSH 01/29/17 08:30 (Ativan Inj) 2 mg Q1H PRN IV PUSH 01/29/17 08:30 (Ativan Inj) 2 mg Q15M PRN IV PUSH 01/29/17 08:30 Clonidine 0.1 mg 0.1 mg Q6H PRN PO 01/30/17 06:00 01/30/17 05:58 Vancomycin HCl 1000 mg/Sodium Chloride 250 ml @ 250 mls/hr Q12H IV 01/30/17 09:45 UNV (Zosyn 4.5 Gm Premix) 100 ml @ 200 mls/hr Q8H IV 01/30/17 09:45 UNV A/P Problem List: (1) Severe sepsis ICD Code: A41.9 Status: Acute Plan: Present on admission, patient with temperature of 102.1, heart rate 126, white blood cell 10.5, however bandemia of 18 and a lactate of 5.1 and acute kidney injury. Chest x-ray no acute disease, UA negative for UTI. Sepsis likely secondary to acute gastroenteritis. Patient with diarrhea but no abdominal pain. Patient initially treated with IV vancomycin and IV cefepime, was discontinued by Dr. Ochoa after suspected bilateral etiology. 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 Follow-up stool studies sent. I will order stool ova and parasite and stool WBC. I will start the patient on IV ciprofloxacin. (2) Bandemia ICD Code: D72.825 Status: Acute Plan: As above. Continue to monitor CBC with differential. (3) Elevated troponin ICD Code: R74.8 Status: Acute Plan: Troponin slightly elevated at 0.08, repeat enzymes 0.052. Likely secondary to demand ischemia and acute pulmonary edema with some component of congestive heart failure and sepsis. EKG reviewed by me on admission showed sinus tachycardia without ST changes suggestive of active ischemia. (4) Rhabdomyolysis ICD Code: M62.82 Status: Acute Plan: CPK 9 mL admission. Continue gentle IV fluids with caution with fluid overload. Continue to monitor CPK. (5) Thrombocytopenia ICD Code: D69.6 Status: Acute Plan: , Cytopenia likely reactive to alcohol abuse and acute infectious process. Continue to monitor platelets. No signs of active bleeding. (6) Flash pulmonary edema ICD Code: J81.0 Status: Acute Plan: Due to fluid overload. Suspect there is some CHF component since patient has also bilateral lower extremity edema. Check 2-D echocardiogram. (7) MIRIAN (acute kidney injury) ICD Code: N17.9 Status: Resolved Plan: Likely from prerenal azotemia from dehydration due to diarrhea. Resolved after fluid administration. (8) Transaminitis ICD Code: R74.0 Status: Acute Plan: AST elevated at 258, AST 89. Likely due to alcohol abuse. Check hepatitis panel and continue to monitor liver function tests. Check liver ultrasound. (9) Congestive heart failure ICD Code: I50.9 Status: Acute Plan: Something with pulmonary edema and fluid overload. Follow-up echocardiogram. Heart in normal tests of normal. I will consult cardiology. For now continue gentle IV fluids since the patient needs the IV fluids secondary to sepsis and diarrhea. (10) Diarrhea ICD Code: R19.7 Status: Acute Plan: Likely the cause of sepsis, follow-up stools studies as mentioned above. Check HIV. C diff negative Consult infectious disease. Will start Lactobacillus acidophilus. (11) Leukocytosis ICD Code: D72.829 Status: Acute Plan: Likely due to sepsis secondary to gastritis. Start empiric IV antibiotic therapy with IV ciprofloxacin. Continue to monitor CBC with differential. (12) Hypokalemia ICD Code: E87.6 Status: Acute Plan: Epicardial anemia likely secondary to GI loss secondary to diarrhea. Replace orally and continue to monitor. Replace as needed. (13) Elevated lactic acid level ICD Code: R79.89 Status: Acute Plan: Due to sepsis and dehydration secondary to diarrhea. Continue gentle IV fluids with caution secondary to concurrent congestive heart failure and recent pulmonary edema. Continue to monitor lactic acid. (14) Anemia ICD Code: D64.9 Status: Acute Plan: Normocytic anemia. Check iron studies. Possibly secondary to liver disease. (15) Uncontrolled hypertension ICD Code: I10 Status: Acute Plan: Patient's blood pressure persistently elevated into the 170s systolic. I will start the patient on lisinopril. Continue clonidine when necessary. Assessment and Plan DVT prophylaxis: SCDs, add Lovenox SQ Problem Qualifiers (1) Rhabdomyolysis: Qualified Code: M62.82 - Non-traumatic rhabdomyolysis (2) Diarrhea: Qualified Code: R19.7 - Diarrhea, unspecified type (3) Leukocytosis: Qualified Code: D72.829 - Leukocytosis, unspecified type (4) Anemia: Qualified Code: D64.9 - Anemia, unspecified type Steve aLcy MD Jan 30, 2017 09:44
[2017-01-30] MEDS ORDERED: VANCOMYCIN INJ 1,000 MG in SODIUM CHLOR 0.9% 250 ML INJ 250 ML IV SCH (09:45)
[2017-01-30] MEDS ORDERED: POTASSIUM CHLORIDE 20 MEQ CONTROLLED RELEASE TAB PO ONE (09:45)
[2017-01-30] MEDS ORDERED: PIPERACIL-TAZO 4.5 GM PREMIX 100 ML IV SCH (09:45)
[2017-01-30] MEDS: LISINOPRIL 10 MG TAB PO SCH (11:02)
[2017-01-30] MEDS: CIPROFLOXACIN 400 MG PREMIX 200 ML IV SCH ×2 (11:02→23:37)
[2017-01-30 12:50] LABS: FERRITIN 285 NG/ML (26-388); TRANSFERRIN IRON PROFILE 140 MG/DL (200-360)
--- NOTE | 2017-01-30 13:13 | MB ---
cc: GABBI JACOBSON MD DATE OF CONSULTATION: 01/30/2017 DATE OF : 1970 REASON FOR CONSULTATION Shortness of breath, heart failure. HISTORY OF PRESENT ILLNESS 46 year-old man with past medical history significant for hypertension, obesity and alcohol abuse who presented to the emergency department with complaint of generalized weakness, cough and fever for two days, associated with dizziness and light headedness. He was admitted to the hospital and treated with antibiotics for an obscure source of infection. He has been given antibiotics as per as well as IV fluids. He had apparent episode of shortness of breath in the setting of getting too much IV hydration during this admission. Thus, cardiology has been consulted for heart failure evaluation. He denies chest pain , palpitations, shortness of breath, PND. He reports bilateral leg edema which started since admission in the hospital. REVIEW OF SYSTEMS: Negative except for what is mentioned in the HPI. PAST MEDICAL HISTORY: Hypertension. PAST SURGICAL HISTORY: None. ALLERGIES: NO KNOWN DRUG ALLERGIES. FAMILY HISTORY: Noncontributory. SOCIAL HISTORY: He drinks ten beers every day. He denies illicit drug use or tobacco abuse. 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 PHYSICAL EXAMINATION: Vital signs: Temperature 98.6 trending down from 102, RR 18, HR 98, blood pressure 147/91, O2 sats 96% room air. Generally awake, alert, oriented x3 in no acute distress. Neck: No JVD, no carotid bruits. Heart: Regular rate and rhythm. No murmurs, rubs or gallops. Lungs: Clear to auscultation bilaterally. No wheezes or rhonchi. Abdomen: Obese. Positive bowel sounds, soft, nontender, nondistended. Extremities: There is +1 edema. No cyanosis. Pulses throughout. DATA CBC: WBC trending up from 10 to 17, hemoglobin 10, hematocrit 32, platelet count 72, INR 1.4. Chemistry: 136, potassium 3.4, BUN 21, creatinine 1.02, troponin less than 0.05 x2. Urinalysis: Positive for protein. Blood cultures, urine cultures have not grown anything so far. Chest x-ray: Some mild pulmonary congestion. EKG: sinus tachycardia with nonspecific ST changes. ASSESSMENT/PLAN 46-year-old male admitted with fever, cough, being treated for an infection, consulted for mild heart failure exacerbation in the setting of aggressive IV hydration. No previous cardiac history. He remains afebrile and hemodynamically stable. Echocardiogram reveals preserved LV systolic function, no wall motion abnormalities, increase right sided pressure. RECOMMENDATIONS 1. PO diuresis. 2. Low salt diet for weight daily, 3. Strict input and output. 4. Weight daily 5. Encourage ambulation, exercise, weight loss and decrease alcohol intake. Thank you for the opportunity to participate in the care of this patient. Sign off Gabbi Jacobson MD SUPERCHARGE REPAIR SUPERVISOR/SARAHI /12:22 PM /12:55 PM MTDOsman
--- NOTE | 2017-01-30 13:56 | RADRPT ---
EXAM DATE/TIME: 01/30/2017 12:55 [facility] COMPARISON: No previous studies available for comparison. INDICATIONS : Increased lab values. MEDICAL HISTORY : Hypertension. Neurologic problems. SURGICAL HISTORY : None. ENCOUNTER: Initial ACUITY: 1 day PAIN SCORE: 10 LOCATION: Bilateral upper quadrant MEASUREMENTS: LIVER: 20.5 cm length COMMON DUCT: 5 mm RIGHT KIDNEY: 12.5 x 6.0 x 6.9 cm SPLEEN: 13.4 cm length FINDINGS: LIVER: Diffuse nodularity of the liver capsule just and cirrhosis. No focal mass identified. Portal venous f low is hepatopedal. Prominent venous structure is seen extending anteriorly into the periumbilical re gion suggesting a recanalized periumbilical vein. COMMON DUCT: No intraluminal mass or stone visualized. GALLBLADDER: Diffuse mild gallbladder wall thickening. Gallbladder is incompletely distended. No calculi identifie d. PANCREAS: The visualized portions are within normal limits. RIGHT KIDNEY: No hydronephrosis, stone or mass. SPLEEN: Enlarged measuring 13.4 cm in craniocaudal dimension. CONCLUSION: 1. Diffuse nodularity of the liver capsule suggesting cirrhosis. 2. Recanalized periumbilical vein portal venous hypertension. Portal venous flow is hepatopedal. 3. Mild splenomegaly. 4. Mild nonspecific diffuse gallbladder wall thickening. Apollo Wright MD on January 30, 2017 at 13:51 Board Certified Radiologist. This report was verified electronically.
--- NOTE | 2017-01-30 19:00 | EC ---
Study Study Date:01/30/2017 STUDY CONCLUSIONS SUMMARY - Left ventricle: The cavity size was normal. Wall thickness was increased in a pattern of moderate LVH. Systolic function was normal. The estimated ejection fraction was 60%. Wall motion was normal; there were no regional wall motion abnormalities. - Mitral valve: Mild regurgitation. - Left atrium: The atrium was mildly dilated. - Tricuspid valve: Mild regurgitation. - Pulmonary arteries: Systolic pressure was moderately increased. PA peak pressure: 58mm Hg (S). If LV function is below 40, please consider prescribing an ACEI or ARB or document rationale for non-use. PROCEDURE DATA STUDY STATUS: Elective. Procedure: Transthoracic echocardiography. Image quality was good. Scanning was performed from the parasternal, apical, and subcostal acoustic windows. Study completion: The patient tolerated the procedure well. Transthoracic echocardiography. M-mode, complete 2D, complete spectral Doppler, and color Doppler. Patient status: Inpatient. CARDIAC ANATOMY LEFT VENTRICLE: The cavity size was normal. Wall thickness was increased in a pattern of moderate LVH. Systolic function was normal. The estimated ejection fraction was 60%. Wall motion was normal; there were no regional wall motion abnormalities. AORTIC VALVE: Trileaflet; normal thickness leaflets. Doppler: Transvalvular velocity was within the normal range. There was no stenosis. No regurgitation. AORTA: Aortic root: The aortic root was normal in size. MITRAL VALVE: Structurally normal valve. Doppler: Transvalvular velocity was within the normal range. There was no evidence for stenosis. Mild regurgitation. LEFT ATRIUM: The atrium was mildly dilated. RIGHT VENTRICLE: The cavity size was normal. Wall thickness was normal. PULMONIC VALVE: Doppler: Transvalvular velocity was within the normal range. There was no evidence for stenosis. No regurgitation. TRICUSPID VALVE: Structurally normal valve. Doppler: Transvalvular velocity was within the normal range. Mild regurgitation. PULMONARY ARTERY: The main pulmonary artery was normal-sized. Systolic pressure was moderately increased. RIGHT ATRIUM: The atrium was normal in size. PERICARDIUM: There was no pericardial effusion. SYSTEMIC VEINS: Inferior vena cava: The vessel was normal in size. BASIC MEASUREMENTS ADULT Normal Left ventricle LV internal dimension, ED, chordal level, *52.3 mm 43-52 PLAX LV internal dimension, ES, chordal level, 36.9 mm 23-38 PLAX Fractional shortening, chordal level, PLAX *29 % >29 LV posterior wall thickness, ED 11.5 mm IVS/LVPW ratio, ED *1.4 <1.3 Ventricular septum Septal thickness, ED 16.1 mm Aortic valve Leaflet separation 23 mm 15-26 Right ventricle RV internal dimension, ED, PLAX 26.6 mm 19-38 BASIC MEASUREMENTS ADULT Normal Aortic valve Leaflet separation 23 mm 15-26 Aorta Root diameter, ED 30 mm 20-37 Left atrium Anterior-posterior dimension, ES *43 mm 19-40 LA/aortic root ratio 1.43 DOPPLER MEASUREMENTS ADULT Normal Main pulmonary artery Pressure, S *58 mm Hg =30 Tricuspid valve Regurgitant peak velocity 347 cm/s Peak RV-RA gradient, S 48 mm Hg Maximal regurgitant velocity 347 cm/s Systemic veins Estimated CVP 10 mm Hg Right ventricle RV pressure, S *58 mm Hg <30 LEGEND: Mean values are shown as u=mean value. Asterisk (*) wiggins values outside specified normal range. Prepared and signed by Anand Mobley [id number]
[2017-01-31] VITALS: BP 118/68; PULSE 84; RESP 20; TEMP 97.8; O2SAT 98
[2017-01-31 04:00] VITALS: BP 120/70; PULSE 80; RESP 20; TEMP 98; O2SAT 96
[2017-01-31 05:12] LABS: AUTOMATED NEUTROPHIL # 9.8 TH/MM3 (1.8-7.7); BASOPHIL # 0.1 TH/MM3 (0-0.2); BASOPHIL % 0.9 % (0.0-2.0); EOSINOPHIL # 0.3 TH/MM3 (0-0.4); HEMATOCRIT 32.5 % (39.0-51.0); LYMPH % 18.4 % (9.0-44.0); LYMPHOCYTE # 2.6 TH/MM3 (1.0-4.8); MEAN CELL VOLUME 96.9 FL (80.0-100.0); MEAN CORPUSCULAR HEMOGLOBIN 31.5 PG (27.0-34.0); MEAN CORPUSCULAR HGB CONC 32.6 % (32.0-36.0); NEUT % 69.7 % (16.0-70.0); PLATELET COUNT 88 TH/MM3 (150-450); RED BLOOD COUNT 3.35 MIL/MM3 (4.50-5.90); RED CELL DISTRIBUTION WIDTH 15.3 % (11.6-17.2); WHITE BLOOD COUNT 14.1 TH/MM3 (4.0-11.0)
[2017-01-31 05:17] LABS: HEMO FLAGS AUTO DIFF
[2017-01-31 05:34] LABS: ALT (GPT) 62 U/L (12-78); ANION GAP 8 MEQ/L (5-15); AST (GOT) 143 U/L (15-37); BICARBONATE 24.1 MEQ/L (21.0-32.0); BLOOD UREA NITROGEN 17 MG/DL (7-18); CHLORIDE 104 MEQ/L (98-107); GLOMERULAR FILTRATION RATE 109 ML/MIN (>89); MAGNESIUM 1.7 MG/DL (1.5-2.5); POTASSIUM 3.8 MEQ/L (3.5-5.1); SODIUM (NA) 136 MEQ/L (136-145)
[2017-01-31 05:36] LABS: ALKALINE PHOSPHATASE 77 U/L (45-117); CREATINE KINASE 187 U/L (39-308); TOTAL BILIRUBIN ADULT 3.8 MG/DL (0.2-1.0)
[2017-01-31 07:32] LABS: BANDS 26 % (0-6); BASOPHILS 1 % (0-2); EOSINOPHILS 2 % (0-4); MYELOCYTES 2 % (0-0); NEUTROPHIL # MANUAL DIFF 11.6 TH/MM3 (1.8-7.7); POLYS (SEG NEUTROPHILS) 54 % (16-70); WBC DIFF SAMPLE 100
[2017-01-31 07:33] LABS: ACANTHOCYTES OCC (NORMAL)
[2017-01-31 07:34] LABS: TEARDROP RBCS 1+ (NORMAL)
[2017-01-31 07:35] LABS: OVALOCYTES 1+ (NORMAL); PLATELET ESTIMATE SMEAR LOW (NORMAL); PLATELET MORPHOLOGY NORMAL (NORMAL); SCAN/DIFF FINAL DIFF MANUAL
[2017-01-31 08:00] VITALS: BP 151/93; PULSE 86; RESP 18; TEMP 86; O2SAT 97
--- NOTE | 2017-01-31 08:06 | HHI.PR ---
Subjective Remarks overall doing fine with no complaints. afebrile. no abdominal pain, nausea, vomiting. Objective Vitals Vital Signs Date Time Temp Pulse Resp B/P Pulse Ox O2 Delivery O2 Flow Rate FiO2 01/31/17 04:00 98.0 80 20 120/70 96 01/31/17 00:00 97.8 84 20 118/68 98 01/30/17 22:45 97 01/30/17 21:00 108 01/30/17 20:00 98.5 82 20 126/72 97 01/30/17 16:00 96.3 96 20 158/89 97 01/30/17 12:00 98.0 92 19 154/96 98 I/O 01/30/17 01/30/17 01/30/17 01/31/17 01/31/17 01/31/17 07:00 15:00 23:00 07:00 15:00 23:00 Intake Total 240 ml 432 ml 480 ml 220 ml Output Total 550 ml 550 ml Balance 240 ml 432 ml -70 ml -330 ml Intake Oral 240 ml 240 ml 480 ml 220 ml IV Total 0 ml 192 ml Output Urine Total 550 ml 550 ml # Voids 3 4 # Bowel Movements 0 0 0 Result Diagram: 01/31/17 0425 01/31/17 0425 Imaging Last Impressions Liver Ultrasound 01/30/17 0000 Signed Impressions: Service Date/Time: Monday, January 30, 2017 12:55 - CONCLUSION: 1. Diffuse nodularity of the liver capsule suggesting cirrhosis. 2. Recanalized periumbilical vein portal venous hypertension. Portal venous flow is hepatopedal. 3. Mild splenomegaly. 4. Mild nonspecific diffuse gallbladder wall thickening. Apollo Wright MD Chest X-Ray 01/29/17 0000 Signed Impressions: Service Date/Time: Sunday, January 29, 2017 02:02 - CONCLUSION: Suspected mild failure developing in the proper clinical setting. No confluent infiltrate seen. Stalin Coffey MD Objective Remarks GENERAL: This is a well-nourished, well-developed patient, in no apparent distress. CARDIOVASCULAR: Regular rate and regular rhythm without murmurs, gallops, or rubs. RESPIRATORY: Clear to auscultation. Breath sounds equal bilaterally. No wheezes , rales, or rhonchi. GASTROINTESTINAL: Abdomen soft, non-tender, nondistended. Normal, active bowel sounds MUSCULOSKELETAL: Extremities without clubbing, cyanosis, or edema. NEURO: Alert & Oriented x4 to person, place, time, situation. Moves all ext x4 Procedures none Medications and IVs Current Medications Sodium Chloride (NS 1000 ml Inj) 1,000 ml @ 1,000 mls/hr Q1H ONCE IV Last administered on 01/28/17 23:32; Start 01/28/17 at 23:05; Stop 01/29/17 at 00:04 ; Status DC Acetaminophen 650 mg 650 mg ONCE ONCE PO Last administered on 01/28/17 23:32 ; Start 01/28/17 at 23:15; Stop 01/28/17 at 23:16; Status DC Vancomycin HCl 1650 mg/Sodium Chloride 516.5 ml @ 250 mls/hr ONCE ONCE IV Last administered on 01/29/17 01:48; Start 01/29/17 at 00:30; Stop 01/29/17 at 02:34; Status DC Piperacillin Sod/ Tazobactam Sod 50 ml @ 100 mls/hr ONCE ONCE IV Last administered on 01/29/17 00:45; Start 01/29/17 at 00:30; Stop 01/29/17 at 00:59 ; Status DC Sodium Chloride 1,000 ml @ 999 mls/hr BOLUS ONCE IV Last administered on 01/29 00:44; Start 01/29/17 at 00:30; Stop 01/29/17 at 01:30; Status DC Sodium Chloride 1,000 ml @ 999 mls/hr BOLUS ONCE IV Last administered on 01/29 00:45; Start 01/29/17 at 00:30; Stop 01/29/17 at 01:30; Status DC Pharmacy Profile Note 0 ml @ 0 mls/hr UNSCH OTHER ; Start 01/29/17 at 01:45; Stop 01/29/17 at 08:53; Status DC Cefepime HCl 1000 mg/Sodium Chloride 100 ml @ 200 mls/hr Q12H IV ; Start at 09:00; Stop 01/29/17 at 09:00; Status DC Sodium Chloride (NS 1000 ml Inj) 1,000 ml @ 50 mls/hr Q20H IV ; Start 01/29/17 at 01:45 Sodium Chloride (NS Flush) 2 ml UNSCH PRN IV FLUSH FLUSH AFTER USING IV ACCESS ; Start 01/29/17 at 01:45 Sodium Chloride (NS Flush) 2 ml BID IV FLUSH Last administered on 01/30/17 21: 59; Start 01/29/17 at 09:00 Ondansetron HCl (Zofran Inj) 4 mg Q6H PRN IVP NAUSEA OR VOMITING; Start at 01:45 Bisacodyl (Dulcolax Supp) 10 mg DAILY PRN RECTAL CONSTIPATION; Start 01/29/17 at 01:45 Acetaminophen (Tylenol) 650 mg Q6H PRN PO FEVER/PAIN SCALE 1 TO 2; Start at 01:45 Acetaminophen/ Hydrocodone Bitart ([place] 5-325 Mg) 1 tab Q4H PRN PO PAIN SCALE 3 TO 5; Start 01/29/17 at 01:45 Morphine Sulfate (Morphine Inj) 2 mg Q3H PRN IV Pain 6-10; Start 01/29/17 at 01 :45 Albuterol/ Ipratropium (Duoneb Neb) 1 ampule Q4HR NEB PRN NEB SOB/WHEEZING; Start 01/29/17 at 01:45 Furosemide (Lasix Inj) 10 mg ONCE ONCE IV PUSH Last administered on 01/29/17 02:27; Start 01/29/17 at 02:15; Stop 01/29/17 at 02:34; Status DC Albuterol/ Ipratropium (Duoneb Neb) 1 ampule STK-MED ONCE .ROUTE Last administered on 01/29/17 02:26; Start 01/29/17 at 02:09; Stop 01/29/17 at 02:10 ; Status DC Flumazenil (Romazicon Inj) 0.2 mg Q1M PRN IV PUSH SEE LABEL COMMENTS; Start at 08:30 Lorazepam (Ativan) 1 mg Q4H PRN PO CIWA 8 - 10 Last administered on 01/29/17 21:00; Start 01/29/17 at 08:30 Lorazepam (Ativan Inj) 1 mg Q4H PRN IV PUSH CIWA 8 - 10; Start 01/29/17 at 08: 30 Lorazepam (Ativan) 2 mg Q2H PRN PO CIWA 11-14; Start 01/29/17 at 08:30 Lorazepam (Ativan Inj) 2 mg Q2H PRN IV PUSH CIWA 11-14; Start 01/29/17 at 08:30 Lorazepam (Ativan Inj) 2 mg Q1H PRN IV PUSH CIWA 15-20; Start 01/29/17 at 08:30 Lorazepam (Ativan Inj) 2 mg Q15M PRN IV PUSH CIWA > 20; Start 01/29/17 at 08:30 Clonidine 0.1 mg 0.1 mg Q6H PRN PO SBP>180, DBP>95 Last administered on 05:58; Start 01/30/17 at 06:00 Vancomycin HCl 1000 mg/Sodium Chloride 250 ml @ 250 mls/hr Q12H IV ; Start at 09:45; Stop 01/30/17 at 09:55; Status DC Piperacillin Sod/ Tazobactam Sod (Zosyn 4.5 Gm Premix) 100 ml @ 200 mls/hr Q8H IV ; Start 01/30/17 at 09:45; Stop 01/30/17 at 09:55; Status DC Potassium Chloride 20 meq 20 meq ONCE ONCE PO Last administered on 01/30/17 11:02; Start 01/30/17 at 09:45; Stop 01/30/17 at 09:56; Status DC Ciprofloxacin/ Dextrose (Cipro 400 Mg Premix) 200 ml @ 200 mls/hr Q12H IV Last administered on 01/30/17 23:37; Start 01/30/17 at 11:00 Lisinopril (Prinivil) 10 mg DAILY PO Last administered on 01/30/17 11:02; Start 01/30/17 at 10:45 A/P Assessment and Plan A/P - severe sepsis Present on admission, patient with temperature of 102.1, heart rate 126, white blood cell 10.5, however bandemia of 18 and a lactate of 5.1 and acute kidney injury. Chest x-ray no acute disease, UA negative for UTI. Sepsis likely secondary to acute gastroenteritis. Patient with diarrhea but no abdominal pain. started the patient on IV ciprofloxacin. CBC in am. (2) Bandemia ICD Code: D72.825 Status: Acute Plan: As above. Continue to monitor CBC with differential. (3) Elevated troponin ICD Code: R74.8 Status: Acute Plan: Troponin slightly elevated at 0.08, repeat enzymes 0.052. Likely secondary to demand ischemia and acute pulmonary edema with some component of congestive heart failure and sepsis. EKG with no acute St-T changes. (4) Rhabdomyolysis-resolved ICD Code: M62.82 Status: Acute Plan: CPK 9 mL admission. Continue gentle IV fluids with caution with fluid overload. (5) Thrombocytopenia ICD Code: D69.6 Status: Acute Plan: , Cytopenia likely reactive to alcohol abuse and acute infectious process. Continue to monitor platelets. No signs of active bleeding. advised to stop drinking. (6) Flash pulmonary edema ICD Code: J81.0 Status: Acute Plan: Due to fluid overload. Suspect there is some CHF component since patient has also bilateral lower extremity edema. (7) MIRIAN (acute kidney injury) ICD Code: N17.9 Status: Resolved Plan: Likely from prerenal azotemia from dehydration due to diarrhea. Resolved after fluid administration. (8) Transaminitis ICD Code: R74.0 Status: Acute Plan: AST elevated at 258, AST 89. Likely due to alcohol abuse. hepatitis panel pending. liver US with cirrhosis. (9) Congestive heart failure- chronic diastolic ICD Code: I50.9 Status: Acute pulmonary edema and fluid overload. echo with EF 60% cardiology consult appreciated. (10) Diarrhea ICD Code: R19.7 Status: Acute Plan: Likely the cause of sepsis,stool culture negative. C diff negative Consulted infectious disease. Will start Lactobacillus acidophilus. (11) Leukocytosis ICD Code: D72.829 Status: Acute Plan: Likely due to sepsis secondary to gastritis. Start empiric IV antibiotic therapy with IV ciprofloxacin. Continue to monitor CBC with differential. (12) Hypokalemia ICD Code: E87.6 Status: Acute Plan: Epicardial anemia likely secondary to GI loss secondary to diarrhea. Replace as needed. (13) Elevated lactic acid level ICD Code: R79.89 Status: Acute Plan: Due to sepsis and dehydration secondary to diarrhea. Continue gentle IV fluids with caution secondary to concurrent congestive heart failure and recent pulmonary edema. Continue to monitor lactic acid. (14) Anemia ICD Code: D64.9 Status: Acute Plan: Normocytic anemia. Possibly secondary to liver disease. (15) Uncontrolled hypertension- better. ICD Code: I10 Status: Acute Plan: Patient's blood pressure persistently elevated into the 170s systolic. started on lisinopril. continue to monitor and adjust the regimen as needed. Puneet Lees MD January 31, 2017 08:05 Puneet Lees MD January 31, 2017 08:05
[2017-01-31] MEDS: SODIUM CHLORIDE 0.9% FLUSH 10 ML FLUSH IV FLUSH SCH ×2 (08:32→20:13)
[2017-01-31] MEDS: LISINOPRIL 10 MG TAB PO SCH (08:32)
[2017-01-31] MEDS: CIPROFLOXACIN 400 MG PREMIX 200 ML IV SCH (11:28)
[2017-01-31 12:00] VITALS: BP 149/90; PULSE 95; RESP 18; TEMP 96.5; O2SAT 99
[2017-01-31 16:00] VITALS: BP 135/83; PULSE 94; RESP 18; TEMP 96.3; O2SAT 100
--- NOTE | 2017-01-31 16:47 | PD.ID.CON ---
History of Present Illness Service ID Consult Requested By Dr Vidal Reason for Consult diarrheal disease and sepsis Primary Care Physician No Primary Care Physician Diagnoses: History of Present Illness This is a 46-year-old male with a PMH of HTN and presented to the ER with generalized weakness, cough and fever x2 days. He has fever of 102.1 leukocytosis bandemia of 18% and lactic acidosis with Lactic Acid 5.1. 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 Social History No Tobacco. heavy daily ETOH. No Illicit Drugs. Physical Exam Vital Signs Vital Signs Date Time Temp Pulse Resp B/P Pulse Ox O2 Delivery O2 Flow Rate FiO2 01/31/17 12:00 96.5 95 18 149/90 99 01/31/17 08:00 86.0 86 18 151/93 97 01/31/17 04:00 98.0 80 20 120/70 96 01/31/17 00:00 97.8 84 20 118/68 98 01/30/17 22:45 97 01/30/17 21:00 108 01/30/17 20:00 98.5 82 20 126/72 97 Physical Exam CONSTITUTIONAL/GENERAL: This is a well nourished patient, in no apparent distress. TUBES/LINES/DRAINS: SKIN: No jaundice, rashes, or lesions. Skin temperature appropriate. Not diaphoretic. HEAD: Atraumatic. Normocephalic. EYES: Pupils equal and round and reactive. Extraocular motions intact. ? mild scleral icterus. No injection or drainage. Fundi not examined. ENT: Hearing grossly normal. Nose without bleeding or purulent drainage. oral mucosae without visible erythema, exudates, masses, or lesions. dentition in good condition NECK: Trachea midline. Supple, nontender.. CARDIOVASCULAR: Regular rate and rhythm without murmurs, gallops, or rubs. No JVD. Peripheral pulses symmetric. RESPIRATORY/CHEST: Symmetric, unlabored respirations. Clear to auscultation. Breath sounds equal bilaterally. No wheezes, rales, or rhonchi. GASTROINTESTINAL: Abdomen soft, non-tender, nondistended. No hepato-splenomegaly , or palpable masses. No guarding. Bowel sounds present. GENITOURINARY: Without palpable bladder distension. MUSCULOSKELETAL: Extremities without clubbing, cyanosis, or edema. No joint tenderness or effusion noted. No calf tenderness. No mottling or clubbing. LYMPHATICS: No palpable cervical or supraclavicular adenopathy. NEUROLOGICAL: Awake and alert. Motor and sensory grossly within normal limits. Follows commands. Cognitively sharp. Moves all extremities. PSYCHIATRIC: No obvious anxiety/depression. no apparent hallucinations or other psychotic thought process. Laboratory Laboratory Tests Test 01/31/17 04:25 White Blood Count 14.1 Red Blood Count 3.35 Hemoglobin 10.6 Hematocrit 32.5 Mean Corpuscular Volume 96.9 Mean Corpuscular Hemoglobin 31.5 Mean Corpuscular Hemoglobin 32.6 Concent Red Cell Distribution Width 15.3 Platelet Count 88 Mean Platelet Volume 10.3 Neutrophils (%) (Auto) 69.7 Lymphocytes (%) (Auto) 18.4 Monocytes (%) (Auto) 9.0 Eosinophils (%) (Auto) 2.0 Basophils (%) (Auto) 0.9 Neutrophils # (Auto) 9.8 Lymphocytes # (Auto) 2.6 Monocytes # (Auto) 1.3 Eosinophils # (Auto) 0.3 Basophils # (Auto) 0.1 CBC Comment AUTO DIFF Differential Total Cells 100 Counted Neutrophils % (Manual) 54 Band Neutrophils % 26 Lymphocytes % 5 Monocytes % 10 Eosinophils % 2 Basophils % 1 Neutrophils # (Manual) 11.6 Myelocytes 2 Differential Comment FINAL DIFF MANUAL Platelet Estimate LOW Platelet Morphology Comment NORMAL Tear Drop Cells 1+ Ovalocytes 1+ Acanthocytes OCC Sodium Level 136 Potassium Level 3.8 Chloride Level 104 Carbon Dioxide Level 24.1 Anion Gap 8 Blood Urea Nitrogen 17 Creatinine 0.91 Estimat Glomerular Filtration 109 Rate Random Glucose 74 Calcium Level 8.1 Phosphorus Level 2.4 Magnesium Level 1.7 Total Bilirubin 3.8 Aspartate Amino Transf 143 (AST/SGOT) Alanine Aminotransferase 62 (ALT/SGPT) Alkaline Phosphatase 77 Total Creatine Kinase 187 Total Protein 6.9 Albumin 2.1 Date/Time Procedure Status Source Growth 01/29/17 12:41 - Final Complete Stool Stool NO ENTERIC PATHOGENS DETECTED BY PCR... 01/29/17 00:30 Influenza Types A,B Antigen ([facility]) - Final Complete Nasal Aspirate NEGATIVE FOR FLU A AND B ANTIGEN.... 01/28/17 23:00 Aerobic Blood Culture - Preliminary Resulted Blood Peripheral NO GROWTH IN 3 DAYS 01/28/17 23:00 Anaerobic Blood Culture - Preliminary Resulted Blood Peripheral NO GROWTH IN 3 DAYS Result Diagram: 01/31/17 0425 01/31/17 0425 Imaging Last Impressions Liver Ultrasound 01/30/17 0000 Signed Impressions: Service Date/Time: Monday, January 30, 2017 12:55 - CONCLUSION: 1. Diffuse nodularity of the liver capsule suggesting cirrhosis. 2. Recanalized periumbilical vein portal venous hypertension. Portal venous flow is hepatopedal. 3. Mild splenomegaly. 4. Mild nonspecific diffuse gallbladder wall thickening. Apollo Wright MD Chest X-Ray 01/29/17 0000 Signed Impressions: Service Date/Time: Sunday, January 29, 2017 02:02 - CONCLUSION: Suspected mild failure developing in the proper clinical setting. No confluent infiltrate seen. Satlin Coffey MD Assessment and Plan Assessment and Plan Acute febrile illness on presentation with complete resolution of presentimng smx - montoya negative - probaly viral illness Abx associated diarrnea, resolved; C.diff negative - stool pathogens negative Leukocytosis with marked bandemia ? reacitve Rhabdomyolisis ETOH induced liver disease HIV, hepatitis negative - d/c cipro - observe off abx - fu WBC and bandemia Fabiola Zimmer MD January 31, 2017 16:47
[2017-01-31 20:00] VITALS: BP 162/96; PULSE 95; RESP 20; TEMP 97; O2SAT 94
[2017-02-01] VITALS: BP 146/88; PULSE 93; RESP 20; TEMP 98.5; O2SAT 97
[2017-02-01 04:00] VITALS: BP 136/82; PULSE 89; RESP 20; TEMP 98; O2SAT 98
[2017-02-01 06:11] LABS: AUTOMATED NEUTROPHIL # 6.6 TH/MM3 (1.8-7.7); BASOPHIL # 0.1 TH/MM3 (0-0.2); BASOPHIL % 0.6 % (0.0-2.0); EOSINOPHIL # 0.3 TH/MM3 (0-0.4); EOSINOPHIL % 2.7 % (0.0-4.0); HEMATOCRIT 32.6 % (39.0-51.0); LYMPH % 17.4 % (9.0-44.0); LYMPHOCYTE # 1.8 TH/MM3 (1.0-4.8); MEAN CELL VOLUME 96.6 FL (80.0-100.0); MEAN CORPUSCULAR HEMOGLOBIN 33.4 PG (27.0-34.0); MEAN CORPUSCULAR HGB CONC 34.5 % (32.0-36.0); MONO % 15.1 % (0.0-8.0); NEUT % 64.2 % (16.0-70.0); PLATELET COUNT 101 TH/MM3 (150-450); RED BLOOD COUNT 3.38 MIL/MM3 (4.50-5.90); RED CELL DISTRIBUTION WIDTH 15.4 % (11.6-17.2); WHITE BLOOD COUNT 10.2 TH/MM3 (4.0-11.0)
[2017-02-01 06:55] LABS: HEMO FLAGS AUTO DIFF
[2017-02-01 06:59] LABS: BANDS 16 % (0-6); EOSINOPHILS 1 % (0-4); METAMYELOCYTES 1 % (0-1); MYELOCYTES 1 % (0-0); NEUTROPHIL # MANUAL DIFF 7.1 TH/MM3 (1.8-7.7); PLATELET ESTIMATE SMEAR LOW (NORMAL); PLATELET MORPHOLOGY NORMAL (NORMAL); POLYS (SEG NEUTROPHILS) 52 % (16-70); WBC DIFF SAMPLE 100
[2017-02-01 07:00] LABS: SCAN/DIFF FINAL DIFF MANUAL
[2017-02-01 08:00] VITALS: BP 161/95; PULSE 91; RESP 18; TEMP 98.6; O2SAT 94
--- NOTE | 2017-02-01 08:00 | HHI.PR ---
Subjective Remarks resting comfortably with no distress. no fever. no complaints. Objective Vitals Vital Signs Date Time Temp Pulse Resp B/P Pulse Ox O2 Delivery O2 Flow Rate FiO2 02/01/17 04:00 98.0 89 20 136/82 98 02/01/17 00:00 98.5 93 20 146/88 97 01/31/17 20:00 97.0 95 20 162/96 94 01/31/17 16:00 96.3 94 18 135/83 100 01/31/17 12:00 96.5 95 18 149/90 99 01/31/17 08:00 86.0 86 18 151/93 97 I/O 01/31/17 01/31/17 01/31/17 02/01/17 02/01/17 02/01/17 07:00 15:00 23:00 07:00 15:00 23:00 Intake Total 220 ml 440 ml 0 ml 440 ml Output Total 550 ml 2500 ml 600 ml Balance -330 ml -2060 ml 0 ml -160 ml Intake Oral 220 ml 240 ml 440 ml IV Total 200 ml 0 ml 0 ml Output Urine Total 550 ml 2500 ml 600 ml # Bowel Movements 0 0 0 Result Diagram: 02/01/17 0457 01/31/17 0425 Imaging Last Impressions Liver Ultrasound 01/30/17 0000 Signed Impressions: Service Date/Time: Monday, January 30, 2017 12:55 - CONCLUSION: 1. Diffuse nodularity of the liver capsule suggesting cirrhosis. 2. Recanalized periumbilical vein portal venous hypertension. Portal venous flow is hepatopedal. 3. Mild splenomegaly. 4. Mild nonspecific diffuse gallbladder wall thickening. Apollo Wright MD Chest X-Ray 01/29/17 0000 Signed Impressions: Service Date/Time: Sunday, January 29, 2017 02:02 - CONCLUSION: Suspected mild failure developing in the proper clinical setting. No confluent infiltrate seen. Stalin Coffey MD Objective Remarks GENERAL: This is a well-nourished, well-developed patient, in no apparent distress. CARDIOVASCULAR: Regular rate and regular rhythm without murmurs, gallops, or rubs. RESPIRATORY: Clear to auscultation. Breath sounds equal bilaterally. No wheezes , rales, or rhonchi. GASTROINTESTINAL: Abdomen soft, non-tender, nondistended. Normal, active bowel sounds MUSCULOSKELETAL: Extremities without clubbing, cyanosis, or edema. NEURO: Alert & Oriented x4 to person, place, time, situation. Moves all ext x4 Procedures none Medications and IVs Current Medications Sodium Chloride (NS 1000 ml Inj) 1,000 ml @ 1,000 mls/hr Q1H ONCE IV Last administered on 01/28/17 23:32; Start 01/28/17 at 23:05; Stop 01/29/17 at 00:04 ; Status DC Acetaminophen 650 mg 650 mg ONCE ONCE PO Last administered on 01/28/17 23:32 ; Start 01/28/17 at 23:15; Stop 01/28/17 at 23:16; Status DC Vancomycin HCl 1650 mg/Sodium Chloride 516.5 ml @ 250 mls/hr ONCE ONCE IV Last administered on 01/29/17 01:48; Start 01/29/17 at 00:30; Stop 01/29/17 at 02:34; Status DC Piperacillin Sod/ Tazobactam Sod 50 ml @ 100 mls/hr ONCE ONCE IV Last administered on 01/29/17 00:45; Start 01/29/17 at 00:30; Stop 01/29/17 at 00:59 ; Status DC Sodium Chloride 1,000 ml @ 999 mls/hr BOLUS ONCE IV Last administered on 01/29 00:44; Start 01/29/17 at 00:30; Stop 01/29/17 at 01:30; Status DC Sodium Chloride 1,000 ml @ 999 mls/hr BOLUS ONCE IV Last administered on 01/29 00:45; Start 01/29/17 at 00:30; Stop 01/29/17 at 01:30; Status DC Pharmacy Profile Note 0 ml @ 0 mls/hr UNSCH OTHER ; Start 01/29/17 at 01:45; Stop 01/29/17 at 08:53; Status DC Cefepime HCl 1000 mg/Sodium Chloride 100 ml @ 200 mls/hr Q12H IV ; Start at 09:00; Stop 01/29/17 at 09:00; Status DC Sodium Chloride (NS 1000 ml Inj) 1,000 ml @ 50 mls/hr Q20H IV ; Start 01/29/17 at 01:45; Stop 01/31/17 at 13:51; Status DC Sodium Chloride (NS Flush) 2 ml UNSCH PRN IV FLUSH FLUSH AFTER USING IV ACCESS ; Start 01/29/17 at 01:45 Sodium Chloride (NS Flush) 2 ml BID IV FLUSH Last administered on 01/31/17 20: 13; Start 01/29/17 at 09:00 Ondansetron HCl (Zofran Inj) 4 mg Q6H PRN IVP NAUSEA OR VOMITING; Start at 01:45 Bisacodyl (Dulcolax Supp) 10 mg DAILY PRN RECTAL CONSTIPATION; Start 01/29/17 at 01:45 Acetaminophen (Tylenol) 650 mg Q6H PRN PO FEVER/PAIN SCALE 1 TO 2; Start at 01:45 Acetaminophen/ Hydrocodone Bitart ([place] 5-325 Mg) 1 tab Q4H PRN PO PAIN SCALE 3 TO 5; Start 01/29/17 at 01:45 Morphine Sulfate (Morphine Inj) 2 mg Q3H PRN IV Pain 6-10; Start 01/29/17 at 01 :45 Albuterol/ Ipratropium (Duoneb Neb) 1 ampule Q4HR NEB PRN NEB SOB/WHEEZING; Start 01/29/17 at 01:45 Furosemide (Lasix Inj) 10 mg ONCE ONCE IV PUSH Last administered on 01/29/17 02:27; Start 01/29/17 at 02:15; Stop 01/29/17 at 02:34; Status DC Albuterol/ Ipratropium (Duoneb Neb) 1 ampule STK-MED ONCE .ROUTE Last administered on 01/29/17 02:26; Start 01/29/17 at 02:09; Stop 01/29/17 at 02:10 ; Status DC Flumazenil (Romazicon Inj) 0.2 mg Q1M PRN IV PUSH SEE LABEL COMMENTS; Start at 08:30 Lorazepam (Ativan) 1 mg Q4H PRN PO CIWA 8 - 10 Last administered on 01/29/17 21:00; Start 01/29/17 at 08:30 Lorazepam (Ativan Inj) 1 mg Q4H PRN IV PUSH CIWA 8 - 10; Start 01/29/17 at 08: 30 Lorazepam (Ativan) 2 mg Q2H PRN PO CIWA 11-14; Start 01/29/17 at 08:30 Lorazepam (Ativan Inj) 2 mg Q2H PRN IV PUSH CIWA 11-14; Start 01/29/17 at 08:30 Lorazepam (Ativan Inj) 2 mg Q1H PRN IV PUSH CIWA 15-20; Start 01/29/17 at 08:30 Lorazepam (Ativan Inj) 2 mg Q15M PRN IV PUSH CIWA > 20; Start 01/29/17 at 08:30 Clonidine 0.1 mg 0.1 mg Q6H PRN PO SBP>180, DBP>95 Last administered on 05:58; Start 01/30/17 at 06:00 Vancomycin HCl 1000 mg/Sodium Chloride 250 ml @ 250 mls/hr Q12H IV ; Start at 09:45; Stop 01/30/17 at 09:55; Status DC Piperacillin Sod/ Tazobactam Sod (Zosyn 4.5 Gm Premix) 100 ml @ 200 mls/hr Q8H IV ; Start 01/30/17 at 09:45; Stop 01/30/17 at 09:55; Status DC Potassium Chloride 20 meq 20 meq ONCE ONCE PO Last administered on 01/30/17 11:02; Start 01/30/17 at 09:45; Stop 01/30/17 at 09:56; Status DC Ciprofloxacin/ Dextrose (Cipro 400 Mg Premix) 200 ml @ 200 mls/hr Q12H IV Last administered on 01/31/17 11:28; Start 01/30/17 at 11:00; Stop 01/31/17 at 18 :01; Status DC Lisinopril (Prinivil) 10 mg DAILY PO Last administered on 01/31/17 08:32; Start 01/30/17 at 10:45 A/P Assessment and Plan A/P 1- severe sepsis Present on admission, patient with temperature of 102.1, heart rate 126, white blood cell 10.5, however bandemia of 18 and a lactate of 5.1 and acute kidney injury. Chest x-ray no acute disease, UA negative for UTI. Sepsis likely secondary to viral illness/ acute gastroenteritis. ID consult appreciated- Abx were discontinued. (2) Bandemia ICD Code: D72.825 Status: Acute Plan: As above. Continue to monitor CBC with differential. (3) Elevated troponin ICD Code: R74.8 Status: Acute Plan: Troponin slightly elevated at 0.08, repeat enzymes 0.052. Likely secondary to demand ischemia and acute pulmonary edema with some component of congestive heart failure and sepsis. EKG with no acute St-T changes. (4) Rhabdomyolysis-resolved ICD Code: M62.82 Status: Acute Plan: CPK 9 mL admission. Continue gentle IV fluids with caution with fluid overload. (5) Thrombocytopenia ICD Code: D69.6 Status: Acute Plan: , Cytopenia likely reactive to alcohol abuse and acute infectious process. Continue to monitor platelets. No signs of active bleeding. advised to stop drinking. (6) Flash pulmonary edema ICD Code: J81.0 Status: Acute Plan: Due to fluid overload, superimposed on cirrhosis. echo with EF 60%- cardiology consult appreciated- will start lasix. (7) MIRIAN (acute kidney injury) ICD Code: N17.9 Status: Resolved Plan: Likely from prerenal azotemia from dehydration due to diarrhea. Resolved after fluid administration. (8) Transaminitis ICD Code: R74.0 Status: Acute Plan: AST elevated at 258, AST 89. Likely due to alcohol abuse. hepatitis panel negative. liver US with cirrhosis. (9) Diarrhea-resolved. ICD Code: R19.7 Status: Acute Plan: Likely the cause of sepsis,stool culture negative. C diff negative ID consult appreciated. Will start Lactobacillus acidophilus. (10) Leukocytosis-improved. ICD Code: D72.829 Status: Acute Plan: Likely due to sepsis secondary to gastritis. off antibiotics now. (11) Hypokalemia ICD Code: E87.6 Status: Acute Plan: Epicardial anemia likely secondary to GI loss secondary to diarrhea. Replace as needed. (12) Anemia ICD Code: D64.9 Plan: Normocytic anemia. Possibly secondary to liver disease. (13) Uncontrolled hypertension- better. ICD Code: I10 Status: Acute Plan: Patient's blood pressure persistently elevated into the 170s systolic. started on lisinopril. continue to monitor and adjust the regimen as needed. Discharge Planning possible dc home today if ok with ID. see med list. f/u; pcp. d/w the patient. Puneet Lees MD February 01, 2017 08:00
[2017-02-01] MEDS ORDERED: FURO1TAB60 PO (08:04)
[2017-02-01] MEDS ORDERED: LISI10TA3 PO (08:04)
[2017-02-01] MEDS ORDERED: THIA100T PO (08:04)
[2017-02-01] MEDS ORDERED: POTA-163 PO (08:04)
[2017-02-01] MEDS ORDERED: MULT1TAB84 PO (08:04)
--- NOTE | 2017-02-01 08:04 | HHI.DCPOC ---
Discharge Care Plan Diagnosis: (1) Rhabdomyolysis (2) Severe sepsis (3) Bandemia Goals to Promote Your Health * To prevent worsening of your condition and complications * To maintain your health at the optimal level Directions to Meet Your Goals Take your medications as prescribed Follow your dietary instruction Follow activity as directed Keep your appointments as scheduled Take your immunizations and boosters as scheduled If your symptoms worsen call your PCP, if no PCP go to Urgent Care Center or Emergency Room Smoking is Dangerous to Your Health. Avoid second hand smoke Call the 24-hour hour crisis hotline for domestic abuse at Puneet Lees MD February 01, 2017 08:04
--- NOTE | 2017-02-01 08:06 | HHI.DS ---
Discharge Summary Admission Date Jan 29, 2017 at 01:55 Discharge Date: February 01, 2017 Admitting Diagnosis Sepsis, rhabdomyolysis (1) Severe sepsis ICD Code: A41.9 Diagnosis: Principal (2) Bandemia ICD Code: D72.825 Diagnosis: Principal (3) Elevated troponin ICD Code: R74.8 Diagnosis: Secondary (4) Rhabdomyolysis ICD Code: M62.82 Diagnosis: Secondary (5) Thrombocytopenia ICD Code: D69.6 Diagnosis: Secondary (6) Flash pulmonary edema ICD Code: J81.0 Diagnosis: Secondary (7) MIRIAN (acute kidney injury) ICD Code: N17.9 Diagnosis: Secondary (8) Transaminitis ICD Code: R74.0 Diagnosis: Secondary (9) Diarrhea ICD Code: R19.7 Diagnosis: Principal (10) Leukocytosis ICD Code: D72.829 Diagnosis: Principal (11) Hypokalemia ICD Code: E87.6 Diagnosis: Secondary (12) Elevated lactic acid level ICD Code: R79.89 Diagnosis: Principal (13) Anemia ICD Code: D64.9 Diagnosis: Secondary (14) Uncontrolled hypertension ICD Code: I10 Diagnosis: Secondary Procedures none Brief History - From Admission This is a 46-year-old male with a PMH of HTN and presented to the ER with complaints of generalized weakness, cough and fever x2 days. Denies sick contacts. Reports episodes of dizziness/lightheadedness today, no LOC. On arrival, BP 137/77, HR 126, O2 sat 97% on RA, Temp 102.1. WBC 10.5. Platelets 81. Bandemia 18. Creatinine 1.53, no previous labs for comparison. GFR 60. Lactic Acid 5.1. CPK 999. Trop 0.08. BNP 240. U/a hazy but neg for UTI. CXR negative for UTI. S/p 2L IVF and Vanc/Zosyn in ER. After IVF, pt w/ acute respiratory distress, +crackles. Denies h/o CHF or CAD. CBC/BMP: 02/01/17 0457 01/31/17 0425 Significant Findings Laboratory Tests Test 01/29/17 01/29/17 01/30/17 4/30/17 08:25 16:04 04:38 12:02 White Blood Count 16.3 TH/MM3 17.9 TH/MM3 (4.0-11.0) (4.0-11.0) Red Blood Count 3.41 MIL/MM3 3.36 MIL/MM3 (4.50-5.90) (4.50-5.90) Hemoglobin 11.1 GM/DL 10.6 GM/DL (13.0-17.0) (13.0-17.0) Hematocrit 33.2 % 32.4 % (39.0-51.0) (39.0-51.0) Platelet Count 75 TH/MM3 72 TH/MM3 (150-450) (150-450) Neutrophils (%) (Auto) 86.1 % (16.0-70.0) Lymphocytes (%) (Auto) 3.5 % (9.0-44.0) Monocytes (%) (Auto) 10.1 % (0.0-8.0) Neutrophils # (Auto) 14.1 TH/MM3 (1.8-7.7) Lymphocytes # (Auto) 0.6 TH/MM3 (1.0-4.8) Monocytes # (Auto) 1.7 TH/MM3 (0-0.9) Band Neutrophils % 40 % (0-6) Lymphocytes % 2 % (9-44) Neutrophils # (Manual) 15.2 TH/MM3 (1.8-7.7) Platelet Estimate LOW (NORMAL) Carbon Dioxide Level 18.0 MEQ/L (21.0-32.0) Estimat Glomerular Filtration 72 ML/MIN (>89) Rate Random Glucose 108 MG/DL (74-106) Lactic Acid Level 4.1 mmol/L (0.4-2.0) Calcium Level 7.8 MG/DL 7.7 MG/DL (8.5-10.1) (8.5-10.1) Total Bilirubin 5.0 MG/DL (0.2-1.0) Aspartate Amino Transf 258 U/L (15-37) (AST/SGOT) Alanine Aminotransferase 89 U/L (12-78) (ALT/SGPT) Alkaline Phosphatase 127 U/L (45-117) Total Creatine Kinase 1030 U/L 909 U/L (39-308) (39-308) Creatine Kinase MB 11.4 NG/ML 10.1 NG/ML (0.5-3.6) (0.5-3.6) Albumin 2.4 GM/DL (3.4-5.0) Potassium Level 3.4 MEQ/L (3.5-5.1) Blood Urea Nitrogen 21 MG/DL (7-18) Total Iron Binding Capacity 196 MCG/DL (250-450) Percent Iron Saturation 71.4 % (20-50) Test 01/31/17 02/01/17 04:25 04:57 White Blood Count 14.1 TH/MM3 (4.0-11.0) Red Blood Count 3.35 MIL/MM3 3.38 MIL/MM3 (4.50-5.90) (4.50-5.90) Hemoglobin 10.6 GM/DL 11.3 GM/DL (13.0-17.0) (13.0-17.0) Hematocrit 32.5 % 32.6 % (39.0-51.0) (39.0-51.0) Platelet Count 88 TH/MM3 101 TH/MM3 (150-450) (150-450) Monocytes (%) (Auto) 9.0 % (0.0-8.0) 15.1 % (0.0-8.0) Neutrophils # (Auto) 9.8 TH/MM3 (1.8-7.7) Monocytes # (Auto) 1.3 TH/MM3 1.5 TH/MM3 (0-0.9) (0-0.9) Band Neutrophils % 26 % (0-6) 16 % (0-6) Lymphocytes % 5 % (9-44) Monocytes % 10 % (0-8) 13 % (0-8) Neutrophils # (Manual) 11.6 TH/MM3 (1.8-7.7) Myelocytes 2 % (0-0) 1 % (0-0) Platelet Estimate LOW (NORMAL) LOW (NORMAL) Tear Drop Cells 1+ (NORMAL) Ovalocytes 1+ (NORMAL) Calcium Level 8.1 MG/DL (8.5-10.1) Phosphorus Level 2.4 MG/DL (2.5-4.9) Total Bilirubin 3.8 MG/DL (0.2-1.0) Aspartate Amino Transf 143 U/L (15-37) (AST/SGOT) Albumin 2.1 GM/DL (3.4-5.0) Imaging Last Impressions Liver Ultrasound 01/30/17 0000 Signed Impressions: Service Date/Time: Monday, January 30, 2017 12:55 - CONCLUSION: 1. Diffuse nodularity of the liver capsule suggesting cirrhosis. 2. Recanalized periumbilical vein portal venous hypertension. Portal venous flow is hepatopedal. 3. Mild splenomegaly. 4. Mild nonspecific diffuse gallbladder wall thickening. Apollo Wright MD Chest X-Ray 01/29/17 0000 Signed Impressions: Service Date/Time: Sunday, January 29, 2017 02:02 - CONCLUSION: Suspected mild failure developing in the proper clinical setting. No confluent infiltrate seen. Stalin Coffey MD PE at Discharge GENERAL: This is a well-nourished, well-developed patient, in no apparent distress. CARDIOVASCULAR: Regular rate and regular rhythm without murmurs, gallops, or rubs. RESPIRATORY: Clear to auscultation. Breath sounds equal bilaterally. No wheezes , rales, or rhonchi. GASTROINTESTINAL: Abdomen soft, non-tender, nondistended. Normal, active bowel sounds MUSCULOSKELETAL: Extremities without clubbing, cyanosis, or edema. NEURO: Alert & Oriented x4 to person, place, time, situation. Moves all ext x4 Hospital Course 1- severe sepsis Present on admission, patient with temperature of 102.1, heart rate 126, white blood cell 10.5, however bandemia of 18 and a lactate of 5.1 and acute kidney injury. Chest x-ray no acute disease, UA negative for UTI. Sepsis likely secondary to viral illness/ acute gastroenteritis. ID consult appreciated- Abx were discontinued. (2) Bandemia ICD Code: D72.825 Status: Acute Plan: As above. Continue to monitor CBC with differential. (3) Elevated troponin ICD Code: R74.8 Status: Acute Plan: Troponin slightly elevated at 0.08, repeat enzymes 0.052. Likely secondary to demand ischemia and acute pulmonary edema with some component of congestive heart failure and sepsis. EKG with no acute St-T changes. (4) Rhabdomyolysis-resolved ICD Code: M62.82 Status: Acute Plan: CPK 9 mL admission. Continue gentle IV fluids with caution with fluid overload. (5) Thrombocytopenia ICD Code: D69.6 Status: Acute Plan: , Cytopenia likely reactive to alcohol abuse and acute infectious process. Continue to monitor platelets. No signs of active bleeding. advised to stop drinking. (6) Flash pulmonary edema ICD Code: J81.0 Status: Acute Plan: Due to fluid overload, superimposed on cirrhosis. echo with EF 60%- cardiology consult appreciated- will start lasix. (7) MIRIAN (acute kidney injury) ICD Code: N17.9 Status: Resolved Plan: Likely from prerenal azotemia from dehydration due to diarrhea. Resolved after fluid administration. (8) Transaminitis ICD Code: R74.0 Status: Acute Plan: AST elevated at 258, AST 89. Likely due to alcohol abuse. hepatitis panel negative. liver US with cirrhosis. (9) Diarrhea-resolved. ICD Code: R19.7 Status: Acute Plan: Likely the cause of sepsis,stool culture negative. C diff negative ID consult appreciated. Will start Lactobacillus acidophilus. (10) Leukocytosis-improved. ICD Code: D72.829 Status: Acute Plan: Likely due to sepsis secondary to gastritis. off antibiotics now. (11) Hypokalemia ICD Code: E87.6 Status: Acute Plan: Epicardial anemia likely secondary to GI loss secondary to diarrhea. Replace as needed. (12) Anemia ICD Code: D64.9 Plan: Normocytic anemia. Possibly secondary to liver disease. (13) Uncontrolled hypertension- better. ICD Code: I10 Status: Acute Plan: Patient's blood pressure persistently elevated into the 170s systolic. started on lisinopril. continue to monitor and adjust the regimen as needed. Pt Condition on Discharge: Good Discharge Disposition: Discharge Home Discharge Time: <= 30 minutes Discharge Instructions DIET: Follow Instructions for: Heart Healthy Diet Activities you can perform: Regular-No Restrictions Follow up Referrals: PCP Follow-up New Medications: Furosemide (Lasix) 40 Mg Tab 40 MG PO DAILY diuretic #30 Ref 0 TAB Multiple Vitamins W/ Minerals (Multivitamin Adults) 1 Tab 1 TAB PO DAILY Nutritional Supplement Days 30 Ref 0 TAB Potassium Chloride ER (Potassium Chloride ER) 20 Meq Tab 20 MEQ PO DAILY Electrolyte Replacement #30 Ref 0 TAB Thiamine (Thiamine) 100 Mg Tab 100 MG PO DAILY Nutritional Supplement Days 30 Ref 0 TAB Lisinopril (Lisinopril) 10 Mg Tab 10 MG PO DAILY hypertension Days 30 Ref 0 TAB Puneet Lees MD February 01, 2017 08:06
[2017-02-01] MEDS: LISINOPRIL 10 MG TAB PO SCH (08:30)
[2017-02-01] MEDS: SODIUM CHLORIDE 0.9% FLUSH 10 ML FLUSH IV FLUSH SCH (08:31)
[2017-02-01 12:00] VITALS: BP 160/100; PULSE 91; RESP 18; TEMP 97.8; O2SAT 100
== END 2017-02-01 16:11 | disposition home or self-care (01) | DRG 871 ==
LOC: NEPC 20:41 → NEDA 01-29 01:55 → NEDH 01-29 05:11 → N07A 01-29 11:57
PROVIDERS: ADMIT Internal Medicine; ATTEND Internal Medicine
DX: A41.9 Sepsis, unspecified organism (principal); J81.0 Acute pulmonary edema; N17.9 Acute kidney failure, unspecified; I50.32 Chronic diastolic (congestive) heart failure; D69.6 Thrombocytopenia, unspecified; E86.0 Dehydration; M62.82 Rhabdomyolysis; R65.20 Severe sepsis without septic shock; K52.9 Noninfective gastroenteritis and colitis, unspecified; B34.9 Viral infection, unspecified; R74.0 Nonspecific elevation of levels of transaminase and lactic acid dehydrogenase [LDH]; E87.6 Hypokalemia; D72.829 Elevated white blood cell count, unspecified; D64.9 Anemia, unspecified; I10 Essential (primary) hypertension; K70.30 Alcoholic cirrhosis of liver without ascites; F10.10 Alcohol abuse, uncomplicated; E66.9 Obesity, unspecified; Z68.32 Body mass index [BMI] 32.0-32.9, adult
CPT/HCPCS: 71010; 76705; 80048; 80053; 80074; 81001; 82550; 82552; 82728; 83540; 83550; 83605; 83735; 83880; 84100; 84484; 85007; 85027; 85610; 85730; 86703; 87040; 87493; 87506; 87804; 93005; 93306; 96361; 96365; 96375; J0744; J1940; J2543; J3370; J7030; J7040

== ENCOUNTER 2017-03-27 12:48 | Emergency (ER) | payer SELFPAY ==
[~2017-03-27 12:48] MED LIST: FURO1TAB60 PO; LISI10TA3 PO; MULT1TAB84 PO; POTA-163 PO; THIA100T PO
[2017-03-27 12:50] VITALS: BP 164/77; PULSE 89; RESP 15; TEMP 98.2; O2SAT 99
[2017-03-27] MEDS ORDERED: CLIN1CAP5 PO (13:24)
[2017-03-27] MEDS ORDERED: PERM5CRE11 TOPICAL (13:24)
--- NOTE | 2017-03-27 13:25 | PD ---
HPI Chief Complaint: Skin Problem Time Seen by Provider: 13:22 Travel History International Travel<30 days: No Contact w/Intl Traveler<30days: No Traveled to known affect area: No History of Present Illness HPI 46-year-old male presents to emergency Department with complaint of generalized itchy rash 1 week. Says there is an area to his left lower leg that has drainage. Denies fever, vomiting. Denies new exposure to lotions, soaps, detergents, medications, foods, environmental exposures. Denies airway edema, shortness of breath. Has not taken any medications or tried any treatments to alleviate his symptoms. No one else with similar symptoms. No known allergies. Has no other medical complaints. No other modifying factors or associated signs and symptoms. PFSH Past Medical History Cancer: No Cardiovascular Problems: Yes (HTN) Endocrine: No Genitourinary: No Immune Disorder: No Musculoskeletal: No Neurologic: Yes Psychiatric: No Reproductive: No Social History Alcohol Use: Yes (10 BEERS EVERY OTHER DAY) Tobacco Use: No Substance Use: No Allergies-Medications (Allergen,Severity, Reaction): Coded Allergies: No Known Allergies (Unverified , 01/28/17) Reported Meds & Prescriptions Reported Meds & Active Scripts Active Elimite Topical (Permethrin) 5% Cream 1 Applic TOPICAL ONCE Clindamycin (Clindamycin HCl) 150 Mg Cap 450 Mg PO Q6H 10 Days Multivitamin Adults (Multiple Vitamins W/ Minerals) 1 Tab 1 Tab PO DAILY 30 Days Thiamine (Thiamine HCl) 100 Mg Tab 100 Mg PO DAILY 30 Days Potassium Chloride ER (Potassium Chloride) 20 Meq Tab 20 Meq PO DAILY Lasix (Furosemide) 40 Mg Tab 40 Mg PO DAILY Lisinopril 10 Mg Tab 10 Mg PO DAILY 30 Days Review of Systems Except as stated in HPI: all other systems reviewed are Neg Physical Exam Narrative GENERAL: Well-nourished, well-developed male patient, in no acute distress; afebrile, nontoxic-appearing SKIN: Warm and dry. Generalized erythremic pimple-like rash to chest, abdomen, back, bilateral upper and lower extremity; some areas appear excoriated. There is an area to the medial aspect of the left lower leg consistent with cellulitis and with warmth to touch. Bilateral lower legs and feet are edematous and the patient states this is normal and has improved over the past month. HEAD: Atraumatic. Normocephalic. EYES: Pupils equal and round. No scleral icterus. No injection or drainage. ENT: Mucosa pink and moist. Airway patent. NECK: Trachea midline. No lymphadenopathy. CARDIOVASCULAR: Regular rate. RESPIRATORY: No accessory muscle use. GASTROINTESTINAL: Rounded MUSCULOSKELETAL: No obvious deformities. No clubbing. No cyanosis. No edema. NEUROLOGICAL: Awake and alert. Oriented 3. No obvious cranial nerve deficits. Motor grossly within normal limits. Normal speech. PSYCHIATRIC: Appropriate mood and affect; insight and judgment normal. Data Data Last Documented VS Vital Signs Date Time Temp Pulse Resp B/P Pulse Ox O2 Delivery O2 Flow Rate FiO2 03/27/17 13:26 16 03/27/17 12:50 98.2 89 164/77 99 MDM Medical Decision Making Medical Screen Exam Complete: Yes Emergency Medical Condition: Yes Medical Record Reviewed: Yes Differential Diagnosis Contact dermatitis, scabies, bedbugs, hives Narrative Course 46-year-old male physical exam consistent with possible scabies rash and an area of cellulitis to the left lower leg. Patient is afebrile and nontoxic- appearing. Clindamycin, Elimite cream prescribed for home. Instructed patient to follow up with dermatology. Patient verbalizes understanding and agreement with treatment plan. Patient is medically cleared and stable for discharge. Discussed reasons to return to the emergency department. Instructed patient to follow up with primary care provider. Patient agrees with treatment plan. The patients vital signs are stable and the patient is stable for outpatient follow- up and treatment. Patient discharged home, stable and in no acute distress. Diagnosis Primary Impression: Rash and nonspecific skin eruption Additional Impression: Cellulitis of left lower leg Referrals: Registered Radiation Therapist Primary Care Physician Patient Instructions: Acute Rash (ED), Cellulitis (ED), General Instructions, Scabies (ED) Departure Forms: Tests/Procedures, Work Release Enter return to work date: Mar 29, 2017 Additional Instructions: Elimite cream as directed; repeat in one week as needed Soaking in cool water or apply cool, wet washcloths to irritated areas to minimize itching Apply anti-itch creams, such as calamine lotion, to relieve pain and itching as needed [id number] antihistamines as needed and as directed to relieve allergic symptoms caused by scabies Wash all pillows, linens, blankets, etc. in hot water and dry in hot dryer Bag and all unwashable linens, [place] stuffed animals, etc. in a tightly sealed garbage bag for up to 2 weeks Follow-up with fruit and vegetable inspector Follow-up with primary care provider Return to the emergency department immediately with worsening of symptoms Med/Other Pt SpecificInfo: Prescription(s) given Scripts Permethrin Topical (Elimite Topical)5% Cream1 Applic TOPICAL ONCE #1 TUBE Ref 1 Prov:Alice Lopes 03/27/17 Clindamycin 150 Mg [id number] Mg PO Q6H 10 Days Ref 0 Prov:Alice Lopes 03/27/17 Disposition: 01 DISCHARGE HOME Condition: Stable Alice Lopes Mar 27, 2017 13:25
== END 2017-03-27 13:33 | disposition home or self-care (01) ==
LOC: NEPD 12:48
DX: R21 Rash and other nonspecific skin eruption (principal); L03.116 Cellulitis of left lower limb
CPT/HCPCS: 99283

== ENCOUNTER 2017-04-02 23:00 | Emergency (ER) | payer SELFPAY ==
[~2017-04-02] VITALS: Ht 182.9 cm; Wt 115.0 kg
[~2017-04-02 23:00] MED LIST changes: +CLIN1CAP5 PO; +PERM5CRE11 TOPICAL
[2017-04-02 23:02] VITALS: BP 132/61; PULSE 95; RESP 16; TEMP 98.3; O2SAT 96
== END 2017-04-03 02:00 | disposition left against medical advice (07) ==
LOC: NED 23:00
DX: R68.89 Other general symptoms and signs (principal)
CPT/HCPCS: 99281